=== PATIENT | female | born 1935 | race Caucasian/White ===

== ENCOUNTER 2022-09-21 13:55 | Inpatient (IN) | payer MEDICARE, OTHER, SELFPAY ==
[2022-09-21 14:37] VITALS: BP 135/65; PULSE 76; RESP 18; TEMP 36.7; O2SAT 96
--- NOTE | 2022-09-21 14:49 | P.HPPS_ITS ---
HPI Date of Service: 09/21/22 Chief Complaint: DSM 5 Diagnosis:/ F43.25) Adjustment disorders, wi Sources of Information: patient interviewed, chart reviewed and crisis/core team assessment reviewed HPI Subjective Notes: Gallagher Warning and Conditional Voluntary Healthcare Proxy: Yes Narrative: The patient is an 87-year-old female, , mother of 3 adult children, living by herself in her private home with ancillary services such as home health attendance provided by the family, with a prior history of Alzheimer's dementia referred to the emergency room of [facility] due to increased agitation and delusional behavior. According to the crisis assessment, the patient was been verbally abusive towards her home held attendance and she has called before to the police to remove staff a few days ago. When she was admitted to the emergency room, they found out that she had a UTI and she was treated with antibiotics later on, she received corticoids. She was treated on the emergency room later on in the medical unit of [facility] with Zyprexa. The patient was transferring to this facility for continuation of care. On the communication with the previews doctor, the doctor reported the patient had been medically cleared, there were no imaging the medical problems but it was evident that she had some cognitive impairment. On interview, the patient was unable to provide full details of how come she in the in the hospital, she was pleasant, sarcastic and easily redirectable. She adamantly denies suicidal or homicidal thoughts and she looks confused at times. She denies psychotic symptoms and she is able to contract for safety. She understood gallagher warning and she signed a conditional voluntary. Past Psychiatric History: As per the crisis assessment, the patient has never received psychiatric treatment, she was recently diagnosed of Alzheimer's dementia. Medical Evaluation Reviewed: Hospitalist Deandre Pending [facility] Family History: Denies Social History: The patient was born [place], she immigrated to [place]. She was and recently her a few years ago. She is the mother of 3 adult children that she has good social support. She lives by herself with the help of [employer] is for the last 3 months. Substance History: Denies Trauma History: Denies Diagnostics Vital Signs (24Hr): Vital Signs - 24 hr 09/21/22 14:37 Temperature 98.1 F Pulse Rate 76 Respiratory Rate 18 Blood Pressure 135/65 Pulse Oximetry 96 Oxygen Delivery Method Room Air Meds/Allergies Allergies Allergies Allergy/AdvReac Type Severity Reaction Status Date / Time Unable to Assess Allergy Unverified 09/21/22 14:00 Mental Status Exam Mental Status Exam Patient Appearance: Appropriate (On hospital gowns) Patient Orientation: Person, Place and Situation Level of Consciousness: Awake and Appropriate Patient Behavior: Guarded and Suspicious Mood Description: Calm, Withdrawn and Apprehensive Affect Description: Constricted Patient Cognition Impaired: Yes Ability to Follow Directions: Good Speech Pattern: Clear Hallucinations: None Delusions: Paranoid Ideation Thought Process: Distracted and Linear Thought Content: positive for [place] and positive for Circumstantial Judgement: Fair Assessment & Plan Assessment & Plan (1) Alzheimer's dementia: Status: Acute Code(s): G30.9 - Alzheimer's disease, unspecified; F02.80 - Dementia in other diseases classified elsewhere, unspecified severity, without behavioral disturbance, psychotic disturbance, mood disturbance, and anxiety (2) Delirium: Status: Acute Code(s): R41.0 - Disorientation, unspecified (3) Psychosis: Status: Acute Code(s): F29 - Unspecified psychosis not due to a substance or known physiological condition Plan The patient is an elderly female with a prior history of Alzheimer's dementia who was brought from the community to the emergency room due to increased agitation and paranoia, and the emergency room, she was diagnosed with UTI and ready treated with antibiotics. Even though that there is no other source of delirium, she remains paranoid and irritable at times. She was transferring to this facility for psychiatric stabilization. Plan 1. Gather collateral information. 2. Continue with Zyprexa 5 mg p.o. b.i.d. to target psychosis and agitation. 3. Continue with medical workout. 4. 5 minutes checks in the next 24 hours reassess tomorrow. 5. Regular blood work and reassessment with results. Patient educated on: diagnosis and therapeutic strategies Informed Consent: further education needed Reason for continued inpatient stay Substantial Risk for: inability to function, rapid decompensation and med/psych decompensation Statement Statement: I have reviewed the history and physical and performed a pertinent examination on my patient. No changes have occurred unless specified. If the History and Physical was not performed prior to admission, the Hospitalist's service will be consulted for completing the admission physical. Time Spent With Patient Time: Total time managing care of this patient today __45__ minutes.
--- NOTE | 2022-09-21 18:01 | PC.ADMIT ---
Patient admitted to 181-1 at 1406 via ambulance from [facility] Behavioral Disturbances She was oriented to the floor and her room. Annabelle is oriented to person only but knows that she is in a hospital. She is 87 years old. Vital signs were stable. Her skin is clear. She was continent of bowel and bladder. Annabelle wears eyeglasses blue and brown framed and needs a hearing aide in her left ear but she thinks that she left it at home. She thinks that she is here because she has chronic low back pain. She denies any behavior problems, hitting or spitting at home health aides. She denies having home health aides, stating that she only has housekeeping come in on . She ambulates independently and has a steady gait. Her son Noel Santizo and PCP Doris Morales were notified of her admission. Her son Noel stated that her HCP was invoked and he will send us a copy. She signed her CV and all information releases and also stated that she would also like her son Marcin Santizo to have access to her information. I informed her of her patient rights and gave her the written information. Her appetite was good. She is pleasant and cooperative but was annoyed about not having her sweater and would not complete interview until she was wearing it. She denies SI, HI and perceptual disturbances. She complains of chronic low back pain and OA in her hands, which she very occasionally takes Advil for. Belongings report to follow. Meds verified with Dr Greenwood.
[2022-09-21 20:00] VITALS: BP 121/56; PULSE 87; RESP 18; TEMP 36.3; O2SAT 95
[2022-09-21] MEDS: Acetaminophen 325 MG TABLET 650 MG PO (20:38)
[2022-09-21] MEDS: OLANZapine 5 MG TABLET PO (20:39)
[2022-09-21] MEDS: traZODone HCL 50 MG TABLET PO (22:35)
[2022-09-22 08:32] VITALS: BP 132/62; PULSE 76; RESP 18; TEMP 36; O2SAT 98
[2022-09-22 09:35] LABS: Alanine Aminotransferase 12 U/L (0-31); Albumin Level 3.9 g/dL (3.5-5.0); Alkaline Phosphatase 64 U/L (39-117); Anion Gap 15 (12-20); Aspartate Amino Transferase 16 U/L (5-31); Bilirubin Total 0.4 mg/dL (0.0-1.0); Blood Urea Nitrogen 11 mg/dL (9-16); Calcium 9.2 mg/dL (8.4-10.2); Carbon Dioxide 27 mmol/L (22-29); Chloride 105 mmol/L (96-108); Cholesterol 243 mg/dL; Estimated Glomerular Filt Rate > 60; Glucose Fasting 165 mg/dL (60-99); HDL Cholesterol 54 mg/dL; LDL Cholesterol Calculated 152 mg/dl; Potassium 3.7 mmol/L (3.3-5.1); Sodium 143 mmol/L (135-145); Total Protein 6.7 g/dL (6.5-8.0); Triglycerides 189 mg/dL
[2022-09-22] MEDS: OLANZapine 5 MG TABLET PO ×2 (10:15→20:58)
--- NOTE | 2022-09-22 13:43 | HO.PM.IMCN ---
History of Present Illness Data of Consult Service Date: 09/22/22 Requesting physician: Joel Greenwood Primary Care Provider: Unknown Physician HPI Reason for consult: medical H&P 87-year-old female with history of Alzheimer's dementia, osteoarthritis, and history of DVT not on anticoagulation admitted to Psychiatry consult placed to Hospital Medicine for medical H and P. She has no complaints at this time. Denies any alcohol use, illicit drug use, or smoking.Fasting glucose this am elevated at 165. No known history diabetes. Review of Systems Review of Systems: General: No fevers, malaise, unintentional weight loss HEENT: No blurred vision, diplopia. No sore throat, nasal congestion, rhinorrhea, sinus pain, ear pain Cardiovascular: No chest pain, palpitations, or leg edema Respiratory: No shortness of breath, wheezing, cough GI: No abdominal pain, nausea, vomiting, diarrhea, constipation, melena, hematochezia : No dysuria, hematuria, increased urinary frequency, decreased urinary output MSK: No myalgia, back pain Neuro: No headaches, weakness, paresthesias Skin: No rashes or lesions PMFSH Medical History Alzheimer's dementia History of DVT (deep vein thrombosis) Osteoarthritis Social History Household Members: Caregiver Housing: House Do you presently have visiting nurse or other home services: Yes Patient Tobacco Use Status: Former Tobacco user Quit Date: 1968 Tobacco use type: Cigarette Smoked in Last 30 Days: No Patient Interested in Nicotine Replacement: No Patient Given Instructions on How to Stop Smoking: No Second Hand Smoke Exposure: No Use of substances other than those prescribed or required for medical reasons: No Currently Displaying Signs/Symptoms of Drug Intoxication Withdrawal: No Any prior treatment program specific to substance use: No Have you been hit, kicked, punched, or otherwise hurt by someone within the past year? If so, by whom?: No Do you feel safe in your current relationship?: Yes Is there a partner from a previous relationship who is making you feel unsafe now?: No Are you made to feel afraid or neglected: No Buddhism Healthcare Practices: Hoahaoism Advance Directives: No Advance Directives Information Provided: No Do you have thoughts of harming others: None Do you have a plan to hurt others: No Plan Recently lost weight without trying: Unsure How much weight loss: Unsure Eating poorly because of decreased appetite: No Nutrition screen score: 4 Nutrition Risks: No Nutritional Risk Patient : No : No Poor oral hygiene: No service: No Sexual orientation: Straight/Heterosexual Meds Allergies Allergy/AdvReac Type Severity Reaction Status Date / Time cinnamon AdvReac Unknown Headache Verified 09/21/22 15:00 tuna oil AdvReac Unknown Unknown Verified 09/21/22 15:02 Bello agosto tea AdvReac Headache Uncoded 09/21/22 15:02 Active Medications: Current Medications Acetaminophen (Acetaminophen 325 Mg Tablet) 650 mg PO Q6H PRN PRN Reason: Headache/Pain Mild Scale (1-3) Last Admin: 09/21/22 20:38 Dose: 650 mg Al Hydroxide/Mg Hydroxide (Magnesium Hydrox/Alum Hydrox 30 Ml Oral.Susp) 30 ml PO Q6H PRN PRN Reason: Heartburn/Nausea Lorazepam (Lorazepam 0.5 Mg Tablet) 0.5 mg PO Q8H PRN PRN Reason: Anxiety Magnesium Hydroxide (Milk Of Magnesia 30 Ml Oral.Susp) 30 ml PO DAILY PRN PRN Reason: Constipation Olanzapine (Olanzapine 5 Mg Tablet) 5 mg PO BID WILLIAM Last Admin: 09/22/22 10:15 Dose: 5 mg Olanzapine (Olanzapine Odt 10 Mg Tab.Rapdis) 5 mg TRANSLINGU BID PRN PRN Reason: Psychosis Trazodone HCl (Trazodone Hcl 50 Mg Tablet) 50 mg PO BEDTIME MRX1 PRN PRN Reason: Insomnia Last Admin: 09/21/22 22:35 Dose: 50 mg Physical Exam Vital Signs and Narrative: Vital Signs: Last Vital Signs Temp 96.8 F 09/22/22 08:32 Pulse 76 09/22/22 08:32 Resp 18 09/22/22 08:32 BP 132/62 09/22/22 08:32 Pulse Ox 98 09/22/22 08:32 O2 Del Method Room Air 09/22/22 08:32 Constitutional - Awake and Alert, No apparent distress Eyes - PERRLA, EOMI Cardiovascular - S1S2, RRR, No edema Respiratory - Normal lung expansion, Normal respiratory effort, No respiratory distress, CTA bilaterally Gastrointestinal - NT / ND; +BS; No rebound or guarding Extremities - no calf tenderness bilaterally, no swelling Musculoskeletal - Normal inspection, normal ROM Skin - Warm/Dry Neurological - Alert & oriented x3, CN II-XII in tact, 5/5 strength BUE and BLE Psychological - Appropriate affect Results Labs 09/22/22 09:12 Labs: Laboratory Results - last 24 hr 09/22/22 09:12 Anion Gap 15 Estim Creat Clear Calc TNP Estimated GFR > 60 Fasting Glucose 165 H Calcium 9.2 Total Bilirubin 0.4 AST 16 ALT 12 Alkaline Phosphatase 64 Total Protein 6.7 Albumin 3.9 Triglycerides 189 Cholesterol 243 LDL Cholesterol, Calc 152 HDL Cholesterol 54 Assessment and Plan (1) Routine medical exam: Status: Acute Plan 87-year-old female with history of Alzheimer's dementia, osteoarthritis, and 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 #Azheimer's dementia -plan per psychiatry #Osteoarthritis multiple joints -tylenol prn #History dvt -not on AC -no calf tenderness #Impaired fasting glucose -165, was drawn at 912am, question whether this is fasting -Hgb A1c added on Thank you for allowing me to participate in this consult. Signing off at this time. Please do not hesitate to call for further questions. Time Spent With Patient Time: Total time managing care of this patient today ____ minutes.
--- NOTE | 2022-09-22 16:01 | HO.PSYCHPN ---
Subjective Subjective Date of Service: 09/22/22 Reason For Visit: DSM 5 Diagnosis:/ F43.25) Adjustment disorders, wi Interim History: Pt was seen and discussed with the team. She is active with team in milieu and engaged. She slept~ 5 hours last night has been exit seeking-believes team reports she is to attend a . Described as irritable at times, placing items in the toilet, disrobing. Confusion evident-pt licked her deodarant this a.m. with team however she is settling in on day 2 and more cooperative. 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 Medication Compliance: Yes Attending Groups: Intermittent Review of Systems Acute medical concerns: No Medical Review of Systems: unchanged Mental Status Exam Mental Status Exam Patient Appearance: Appropriate (On hospital gowns) Patient Orientation: Person, Place and Situation Level of Consciousness: Awake and Appropriate Patient Behavior: Guarded and Suspicious Mood Description: Calm, Withdrawn and Apprehensive Affect Description: Constricted Patient Cognition Impaired: Yes Ability to Follow Directions: Good Speech Pattern: Clear Hallucinations: None Delusions: Paranoid Ideation Thought Process: Distracted and Linear Thought Content: positive for [place] and positive for Circumstantial Judgement: Fair Diagnostics Vital Signs (24Hr): Vital Signs - 24 hr 09/21/22 20:00 09/22/22 08:32 Temperature 97.3 F 96.8 F Pulse Rate 87 76 Respiratory Rate 18 18 Blood Pressure 121/56 L 132/62 Pulse Oximetry 95 98 Oxygen Delivery Method Room Air Room Air Labs 09/22/22 09:12 Labs: Laboratory Results - last 48 hr 09/22/22 09:12 Sodium 143 Potassium 3.7 Chloride 105 Carbon Dioxide 27 Anion Gap 15 BUN 11 Creatinine 0.76 Estim Creat Clear Calc TNP Estimated GFR > 60 Fasting Glucose 165 H Calcium 9.2 Total Bilirubin 0.4 AST 16 ALT 12 Alkaline Phosphatase 64 Total Protein 6.7 Albumin 3.9 Triglycerides 189 Cholesterol 243 LDL Cholesterol, Calc 152 HDL Cholesterol 54 Medications Medications Current Medications Acetaminophen (Acetaminophen 325 Mg Tablet) 650 mg PO Q6H PRN PRN Reason: Headache/Pain Mild Scale (1-3) Last Admin: 09/21/22 20:38 Dose: 650 mg Al Hydroxide/Mg Hydroxide (Magnesium Hydrox/Alum Hydrox 30 Ml Oral.Susp) 30 ml PO Q6H PRN PRN Reason: Heartburn/Nausea Lorazepam (Lorazepam 0.5 Mg Tablet) 0.5 mg PO Q8H PRN PRN Reason: Anxiety Magnesium Hydroxide (Milk Of Magnesia 30 Ml Oral.Susp) 30 ml PO DAILY PRN PRN Reason: Constipation Olanzapine (Olanzapine 5 Mg Tablet) 5 mg PO BID WILLIAM Last Admin: 09/22/22 10:15 Dose: 5 mg Olanzapine (Olanzapine Odt 10 Mg Tab.Rapdis) 5 mg TRANSLINGU BID PRN PRN Reason: Psychosis Trazodone HCl (Trazodone Hcl 50 Mg Tablet) 50 mg PO BEDTIME MRX1 PRN PRN Reason: Insomnia Last Admin: 09/21/22 22:35 Dose: 50 mg Allergies Allergies Allergy/AdvReac Type Severity Reaction Status Date / Time cinnamon AdvReac Unknown Headache Verified 09/21/22 15:00 tuna oil AdvReac Unknown Unknown Verified 09/21/22 15:02 Bello agosto tea AdvReac Headache Uncoded 09/21/22 15:02 Assessment & Plan Assessment & Plan (1) Alzheimer's dementia: Status: Acute Code(s): G30.9 - Alzheimer's disease, unspecified; F02.80 - Dementia in other diseases classified elsewhere, unspecified severity, without behavioral disturbance, psychotic disturbance, mood disturbance, and anxiety (2) Psychosis: Status: Acute Code(s): F29 - Unspecified psychosis not due to a substance or known physiological condition Plan 87-year-old female with history of Alzheimer's dementia, osteoarthritis, and 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 #Azheimer's dementia -plan per psychiatry #Osteoarthritis multiple joints -tylenol prn #History dvt -not on AC -no calf tenderness #Impaired fasting glucose -165, was drawn at 912am, question whether this is fasting -Hgb A1c added on Thank you for allowing me to participate in this consult. Signing off at this time. Please do not hesitate to call for further questions. 09/22/22: Continue current regime and plan of care. Reason for continued inpatient stay Substantial Risk for: rapid decompensation Time Spent With Patient Time: Total time managing care of this patient today ____ minutes.
[2022-09-22 18:00] VITALS: BP 149/72; PULSE 83; RESP 18; TEMP 36.3; O2SAT 97
[2022-09-22] MEDS: LORazepam 0.5 MG TABLET PO (20:58)
[2022-09-22] MEDS: traZODone HCL 50 MG TABLET PO (20:58)
[2022-09-22] MEDS: Acetaminophen 325 MG TABLET 650 MG PO (20:58)
--- NOTE | 2022-09-23 09:03 | HO.PSYCHPN ---
Subjective Subjective Date of Service: 09/23/22 Reason For Visit: DSM 5 Diagnosis:/ F43.25) Adjustment disorders, wi Interim History: Pt seen, met with team who report increases in intrusive sx, disorganization, irritability, paranoia with aggression (biting, scratching). Refusing meds at times. Later in the day, team requesting one to one which was implemented. Mental Status Exam Mental Status Exam Patient Appearance: Appropriate (On hospital gowns) Patient Orientation: Person, Place and Situation Level of Consciousness: Awake and Appropriate Patient Behavior: Guarded and Suspicious Mood Description: Calm, Withdrawn and Apprehensive Affect Description: Constricted Patient Cognition Impaired: Yes Ability to Follow Directions: Good Speech Pattern: Clear and Spontaneous Speech Memory Description: Remote Impaired Hallucinations: None Delusions: Paranoid Ideation Thought Process: Distracted and Linear Thought Content: positive for [place] and positive for Circumstantial Depressive Symptoms: Increased Irritability Abnormal Motor Activity Signs and Symptoms: Aggression and Agitation Judgement: Fair Diagnostics Vital Signs (24Hr): Vital Signs - 24 hr 09/22/22 18:00 Temperature 97.4 F Pulse Rate 83 Respiratory Rate 18 Blood Pressure 149/72 H Pulse Oximetry 97 Oxygen Delivery Method Room Air Labs 09/22/22 09:12 Labs: Laboratory Results - last 48 hr 09/22/22 09:12 Sodium 143 Potassium 3.7 Chloride 105 Carbon Dioxide 27 Anion Gap 15 BUN 11 Creatinine 0.76 Estim Creat Clear Calc TNP Estimated GFR > 60 Fasting Glucose 165 H Calcium 9.2 Total Bilirubin 0.4 AST 16 ALT 12 Alkaline Phosphatase 64 Total Protein 6.7 Albumin 3.9 Triglycerides 189 Cholesterol 243 LDL Cholesterol, Calc 152 HDL Cholesterol 54 Medications Medications Current Medications Acetaminophen (Acetaminophen 325 Mg Tablet) 650 mg PO Q6H PRN PRN Reason: Headache/Pain Mild Scale (1-3) Last Admin: 09/22/22 20:58 Dose: 650 mg Al Hydroxide/Mg Hydroxide (Magnesium Hydrox/Alum Hydrox 30 Ml Oral.Susp) 30 ml PO Q6H PRN PRN Reason: Heartburn/Nausea Lorazepam (Lorazepam 0.5 Mg Tablet) 0.5 mg PO Q8H PRN PRN Reason: Anxiety Last Admin: 09/22/22 20:58 Dose: 0.5 mg Magnesium Hydroxide (Milk Of Magnesia 30 Ml Oral.Susp) 30 ml PO DAILY PRN PRN Reason: Constipation Olanzapine (Olanzapine 5 Mg Tablet) 5 mg PO BID WILLIAM Last Admin: 09/22/22 20:58 Dose: 5 mg Olanzapine (Olanzapine Odt 10 Mg Tab.Rapdis) 5 mg TRANSLINGU BID PRN PRN Reason: Psychosis Trazodone HCl (Trazodone Hcl 50 Mg Tablet) 50 mg PO BEDTIME MRX1 PRN PRN Reason: Insomnia Last Admin: 09/22/22 20:58 Dose: 50 mg Allergies Allergies Allergy/AdvReac Type Severity Reaction Status Date / Time cinnamon AdvReac Unknown Headache Verified 09/21/22 15:00 tuna oil AdvReac Unknown Unknown Verified 09/21/22 15:02 Bello agosto tea AdvReac Headache Uncoded 09/21/22 15:02 Assessment & Plan Assessment & Plan (1) Alzheimer's dementia: Status: Acute Code(s): G30.9 - Alzheimer's disease, unspecified; F02.80 - Dementia in other diseases classified elsewhere, unspecified severity, without behavioral disturbance, psychotic disturbance, mood disturbance, and anxiety (2) Psychosis: Status: Acute Code(s): F29 - Unspecified psychosis not due to a substance or known physiological condition Plan 87-year-old female with history of Alzheimer's dementia, osteoarthritis, and 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 #Azheimer's dementia -plan per psychiatry #Osteoarthritis multiple joints -tylenol prn #History dvt -not on AC -no calf tenderness #Impaired fasting glucose -165, was drawn at 912am, question whether this is fasting -Hgb A1c added on Thank you for allowing me to participate in this consult. Signing off at this time. Please do not hesitate to call for further questions. 09/22/22: Continue current regime and plan of care. 09/23/22: Continue current regime and plan of care. Informed Consent: does not understand Reason for continued inpatient stay Substantial Risk for: rapid decompensation Time Spent With Patient Time: Total time managing care of this patient today ____ minutes.
[2022-09-23 10:11] VITALS: RESP 18
--- NOTE | 2022-09-23 10:48 | PC.NURSE ---
Annabelle declined to allow VS and take Zyprexa despite education. Kellie Burden NP notified.
--- NOTE | 2022-09-23 16:27 | PC.NURSE ---
Addendum entered by Rossy Polk RN 09/23/22 17:17: Annabelle is very intrusive and frequently entering other patient's rooms and is confused and challenging to redirect. She has been observed to enter several rooms and going through other patient's belongings and taking items. She becomes agitated with redirection and has been throwing items at staff. Kellie Burden NP notified and 1:1 continuous observation order placed for intrusiveness/safety. Original Note: Annabelle is very intrusive as she is frequently going into other peer's rooms
[2022-09-23] MEDS: OLANZapine ODT 10 MG TAB.RAPDIS 5 MG TRANSLINGU (16:36)
[2022-09-23] MEDS: LORazepam 0.5 MG TABLET PO (16:36)
[2022-09-23 18:00] VITALS: BP 115/55; PULSE 82; RESP 18; TEMP 36.9; O2SAT 97
[2022-09-23] MEDS: OLANZapine 5 MG TABLET PO (20:40)
[2022-09-23] MEDS: traZODone HCL 50 MG TABLET PO ×2 (20:40→22:54)
[2022-09-23] MEDS: Acetaminophen 325 MG TABLET 650 MG PO (22:54)
[2022-09-24] MEDS: LORazepam 0.5 MG TABLET PO ×2 (00:30→18:41)
[2022-09-24] MEDS: OLANZapine 5 MG TABLET PO ×2 (10:34→20:27)
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
--- NOTE | 2022-09-24 13:34 | MHC.CLN ---
NUTRITION PATIENT APPEARS THIN/UNDERWEIGHT. GOOD APPETITE REPORTED. ATE ABOUT 50% THIS LUNCH. MONITOR FOR WEIGHT/HEIGHT AND INTAKE.
[2022-09-24 18:00] VITALS: BP 110/58; PULSE 92; RESP 18; TEMP 36.6; O2SAT 96
[2022-09-24] MEDS: traZODone HCL 50 MG TABLET PO (20:27)
[2022-09-24] MEDS: Acetaminophen 325 MG TABLET 650 MG PO (20:28)
[2022-09-25] MEDS: OLANZapine 5 MG TABLET PO ×2 (08:40→22:18)
[2022-09-25 09:02] VITALS: BP 111/53; PULSE 72; RESP 18; TEMP 36.6; O2SAT 97
--- NOTE | 2022-09-25 14:38 | HO.PSYCHPN ---
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 She continues on one to one as she is intrusive, entering other pt's room. She asks this greeting card writer to help her buy ticket to go home. She reports family waiting for her. She reports roommate is someone who works for me, don't worry about them. Pt well groomed. BP stable on lower end 111/53, Hr 72. Medication Compliance: Yes Review of Systems Review of Systems General: No fevers, malaise, unintentional weight loss HEENT: No blurred vision, diplopia. No sore throat, nasal congestion, rhinorrhea, sinus pain, ear pain Cardiovascular: No chest pain, palpitations, or leg edema Respiratory: No shortness of breath, wheezing, cough GI: No abdominal pain, nausea, vomiting, diarrhea, constipation, melena, hematochezia : No dysuria, hematuria, increased urinary frequency, decreased urinary output MSK: No myalgia, back pain Neuro: No headaches, weakness, paresthesias Skin: No rashes or lesions Yes all other systems are reviewed and are negative Mental Status Exam Mental Status Exam Patient Appearance: Appropriate Patient Orientation: Person and Situation Level of Consciousness: Awake and Appropriate Patient Behavior: Guarded and Passive Mood Description: Withdrawn Affect Description: Constricted and Labile Patient Cognition Impaired: Yes Ability to Follow Directions: Good Speech Pattern: Clear Memory Description: Remote Impaired Diagnostics Vital Signs (24Hr): Vital Signs - 24 hr 09/24/22 18:00 09/25/22 09:02 Temperature 97.9 F 97.9 F Pulse Rate 92 72 Respiratory Rate 18 18 Blood Pressure 110/58 L 111/53 L Pulse Oximetry 96 97 Oxygen Delivery Method Room Air Room Air Labs 09/22/22 09:12 Medications Medications Current Medications Acetaminophen (Acetaminophen 325 Mg Tablet) 650 mg PO Q6H PRN PRN Reason: Headache/Pain Mild Scale (1-3) Last Admin: 09/24/22 20:28 Dose: 650 mg Al Hydroxide/Mg Hydroxide (Magnesium Hydrox/Alum Hydrox 30 Ml Oral.Susp) 30 ml PO Q6H PRN PRN Reason: Heartburn/Nausea Donepezil HCl (Donepezil Hcl 5 Mg Tablet) 5 mg PO BEDTIME WILLIAM Last Admin: 09/24/22 20:28 Dose: 5 mg Lorazepam (Lorazepam 0.5 Mg Tablet) 0.5 mg PO Q8H PRN PRN Reason: Anxiety Last Admin: 09/24/22 18:41 Dose: 0.5 mg Magnesium Hydroxide (Milk Of Magnesia 30 Ml Oral.Susp) 30 ml PO DAILY PRN PRN Reason: Constipation Olanzapine (Olanzapine 5 Mg Tablet) 5 mg PO BID WILLIAM Last Admin: 09/25/22 08:40 Dose: 5 mg Olanzapine (Olanzapine Odt 10 Mg Tab.Rapdis) 5 mg TRANSLINGU BID PRN PRN Reason: Psychosis Last Admin: 09/23/22 16:36 Dose: 5 mg Trazodone HCl (Trazodone Hcl 50 Mg Tablet) 50 mg PO BEDTIME MRX1 PRN PRN Reason: Insomnia Last Admin: 09/24/22 20:27 Dose: 50 mg Allergies Allergies Allergy/AdvReac Type Severity Reaction Status Date / Time cinnamon AdvReac Unknown Headache Verified 09/21/22 15:00 tuna oil AdvReac Unknown Unknown Verified 09/21/22 15:02 Bello agosto tea AdvReac Headache Uncoded 09/21/22 15:02 Assessment & Plan Assessment & Plan (1) Alzheimer's dementia: Status: Acute Code(s): G30.9 - Alzheimer's disease, unspecified; F02.80 - Dementia in other diseases classified elsewhere, unspecified severity, without behavioral disturbance, psychotic disturbance, mood disturbance, and anxiety (2) Psychosis: Status: Acute Code(s): F29 - Unspecified psychosis not due to a substance or known physiological condition Plan 87-year-old female with history of Alzheimer's dementia, osteoarthritis, and 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 #Azheimer's dementia -plan per psychiatry #Osteoarthritis multiple joints -tylenol prn #History dvt -not on AC -no calf tenderness #Impaired fasting glucose -165, was drawn at 912am, question whether this is fasting -Hgb A1c added on Thank you for allowing me to participate in this consult. Signing off at this time. Please do not hesitate to call for further questions. Plan 1. Gather collateral information. 2. Continue Zyprexa 5 mg p.o. b.i.d.. 3. We will retry medical workout since she looks slightly more confused than last Saturday. 09/25 continue tx. Reason for continued inpatient stay Substantial Risk for: inability to function Time Spent With Patient Time: Total time managing care of this patient today ____ minutes.
[2022-09-25 18:00] VITALS: BP 147/69; PULSE 85; RESP 18; TEMP 36.3; O2SAT 97
[2022-09-25] MEDS: traZODone HCL 50 MG TABLET PO (22:18)
[2022-09-25] MEDS: LORazepam 0.5 MG TABLET PO (22:18)
--- NOTE | 2022-09-26 00:56 | PC.NURSE ---
Addendum entered by Braden Dey RN 09/26/22 03:25: Patient woke at 0230 with agitation, taking off clothes in the bathroom and washing hair with carton of milk. Patient not listening to any reason or accepting any help/intervention. Patient did dress herself although attempting to put on sweat pants over bing pants inside out and had both of her legs in one leg hole. She will not accept any medications or drinks. She is currently in lounge seated at one of the tables. Original Note: Patient is alert, calm, cooperative tonight. Independent in ADL's although very confused. Remembers events through confusion such as RN giving her tea at the table but also looking for her brother who she states was here and money for a taxi to get home. Patient ambulating halls at 2300, back to bed at midnight. Medication compliant. Will continue to monitor.
[2022-09-26] MEDS: OLANZapine ODT 10 MG TAB.RAPDIS 5 MG TRANSLINGU ×2 (04:46→21:14)
[2022-09-26] MEDS: LORazepam 0.5 MG TABLET PO ×3 (05:00→23:38)
[2022-09-26 08:00] VITALS: BP 128/59; PULSE 69; RESP 18; TEMP 36.6; O2SAT 94
--- NOTE | 2022-09-26 11:11 | HO.PSYCHPN ---
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 She is alert and oriented only to herself. Yesterday she receive p.r.n. Zyprexa for confusion. The social service agency director contact the family and they were thinking of probably discharging to assisted living facility due to her advanced dementia. On interview the patient denies new symptoms, she is pleasantly confused over increase in Aricept to 10 mg p.o. q.h.s. to target dementia. Mental Status Exam Mental Status Exam Patient Appearance: Well Grooomed and Appropriate Patient Orientation: Person and Situation Level of Consciousness: Awake and Appropriate Patient Behavior: Guarded and Passive Mood Description: Calm Affect Description: Apathetic and Constricted Patient Cognition Impaired: Yes Ability to Follow Directions: Good Speech Pattern: Clear Hallucinations: None Delusions: Not Present Thought Process: Distracted and Slowed Thinking Thought Content: positive for [place] and positive for Circumstantial Judgement: Fair Diagnostics Vital Signs (24Hr): Vital Signs - 24 hr 09/25/22 18:00 09/26/22 08:00 Temperature 97.3 F 97.9 F Pulse Rate 85 69 Respiratory Rate 18 18 Blood Pressure 147/69 H 128/59 L Pulse Oximetry 97 94 Oxygen Delivery Method Room Air Room Air Labs 09/22/22 09:12 Medications Medications Current Medications Acetaminophen (Acetaminophen 325 Mg Tablet) 650 mg PO Q6H PRN PRN Reason: Headache/Pain Mild Scale (1-3) Last Admin: 09/24/22 20:28 Dose: 650 mg Al Hydroxide/Mg Hydroxide (Magnesium Hydrox/Alum Hydrox 30 Ml Oral.Susp) 30 ml PO Q6H PRN PRN Reason: Heartburn/Nausea Donepezil HCl (Donepezil Hcl 10 Mg Tablet) 10 mg PO BEDTIME WILLIAM Lorazepam (Lorazepam 0.5 Mg Tablet) 0.5 mg PO Q8H PRN PRN Reason: Anxiety Last Admin: 09/26/22 05:00 Dose: 0.5 mg Magnesium Hydroxide (Milk Of Magnesia 30 Ml Oral.Susp) 30 ml PO DAILY PRN PRN Reason: Constipation Olanzapine (Olanzapine 5 Mg Tablet) 5 mg PO BID WILLIAM Last Admin: 09/25/22 22:18 Dose: 5 mg Olanzapine (Olanzapine Odt 10 Mg Tab.Rapdis) 5 mg TRANSLINGU BID PRN PRN Reason: Psychosis Last Admin: 09/26/22 04:46 Dose: 5 mg Trazodone HCl (Trazodone Hcl 50 Mg Tablet) 50 mg PO BEDTIME MRX1 PRN PRN Reason: Insomnia Last Admin: 09/25/22 22:18 Dose: 50 mg Allergies Allergies Allergy/AdvReac Type Severity Reaction Status Date / Time cinnamon AdvReac Unknown Headache Verified 09/21/22 15:00 tuna oil AdvReac Unknown Unknown Verified 09/21/22 15:02 Bello agosto tea AdvReac Headache Uncoded 09/21/22 15:02 Assessment & Plan Assessment & Plan (1) Alzheimer's dementia: Status: Acute Code(s): G30.9 - Alzheimer's disease, unspecified; F02.80 - Dementia in other diseases classified elsewhere, unspecified severity, without behavioral disturbance, psychotic disturbance, mood disturbance, and anxiety (2) Psychosis: Status: Acute Code(s): F29 - Unspecified psychosis not due to a substance or known physiological condition Plan 87-year-old female with history of Alzheimer's dementia, osteoarthritis, and 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 #Azheimer's dementia -plan per psychiatry #Osteoarthritis multiple joints -tylenol prn #History dvt -not on AC -no calf tenderness #Impaired fasting glucose -165, was drawn at 912am, question whether this is fasting -Hgb A1c added on Thank you for allowing me to participate in this consult. Signing off at this time. Please do not hesitate to call for further questions. Plan 1. Gather collateral information. 2. Continue Zyprexa 5 mg p.o. b.i.d.. 3. We will retry medical workout since she looks slightly more confused than last Saturday. Reason for continued inpatient stay Substantial Risk for: inability to function, rapid decompensation and med/psych decompensation Time Spent With Patient Time: Total time managing care of this patient today __20__ minutes.
[2022-09-26] MEDS: OLANZapine 5 MG TABLET PO ×2 (11:37→20:06)
[2022-09-26 18:00] VITALS: BP 111/56; PULSE 87; RESP 16; TEMP 36.9; O2SAT 95
[2022-09-26] MEDS: Donepezil HCl 10 MG TABLET PO (20:06)
[2022-09-26] MEDS: traZODone HCL 50 MG TABLET PO ×2 (20:06→21:13)
[2022-09-26] MEDS: Acetaminophen 325 MG TABLET 650 MG PO (21:13)
[2022-09-27 08:28] VITALS: BP 141/81; PULSE 75; RESP 18; TEMP 35.9; O2SAT 96
[2022-09-27] MEDS: OLANZapine 5 MG TABLET PO ×2 (09:07→20:57)
--- NOTE | 2022-09-27 10:00 | HO.PSYCHPN ---
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 She slept 6 hours. Last night she needed trazodone and Zyprexa Zydis p.r.n.. The foster care social worker contact her son and probably did workout on placement. On interview the patient rim [place] pleasantly confused with some word-finding. We will start Namenda judson. Mental Status Exam Mental Status Exam Patient Appearance: Well Grooomed and Appropriate Patient Orientation: Person and Situation Level of Consciousness: Awake and Appropriate Patient Behavior: Guarded and Passive Mood Description: Withdrawn Affect Description: Constricted Patient Cognition Impaired: Yes Ability to Follow Directions: Good Speech Pattern: Clear and Difficulty Finding Words Hallucinations: None Delusions: Not Present Thought Process: Distracted and Linear Thought Content: positive for [place], positive for Poverty of Content and positive for Thought Blocking Judgement: Poor Diagnostics Vital Signs (24Hr): Vital Signs - 24 hr 09/26/22 18:00 09/27/22 08:28 Temperature 98.4 F 96.7 F L Pulse Rate 87 75 Respiratory Rate 16 18 Blood Pressure 111/56 L 141/81 H Pulse Oximetry 95 96 Oxygen Delivery Method Room Air Room Air Labs 09/22/22 09:12 Medications Medications Current Medications Acetaminophen (Acetaminophen 325 Mg Tablet) 650 mg PO Q6H PRN PRN Reason: Headache/Pain Mild Scale (1-3) Last Admin: 09/26/22 21:13 Dose: 650 mg Al Hydroxide/Mg Hydroxide (Magnesium Hydrox/Alum Hydrox 30 Ml Oral.Susp) 30 ml PO Q6H PRN PRN Reason: Heartburn/Nausea Donepezil HCl (Donepezil Hcl 10 Mg Tablet) 10 mg PO BEDTIME WILLIAM Last Admin: 09/26/22 20:06 Dose: 10 mg Lorazepam (Lorazepam 0.5 Mg Tablet) 0.5 mg PO Q8H PRN PRN Reason: Anxiety Last Admin: 09/26/22 23:38 Dose: 0.5 mg Magnesium Hydroxide (Milk Of Magnesia 30 Ml Oral.Susp) 30 ml PO DAILY PRN PRN Reason: Constipation Memantine (Memantine Hcl 5 Mg Tablet) 5 mg PO BEDTIME WILLIAM Olanzapine (Olanzapine 5 Mg Tablet) 5 mg PO BID WILLIAM Last Admin: 09/27/22 09:07 Dose: 5 mg Olanzapine (Olanzapine Odt 10 Mg Tab.Rapdis) 5 mg TRANSLINGU BID PRN PRN Reason: Psychosis Last Admin: 09/26/22 21:14 Dose: 5 mg Trazodone HCl (Trazodone Hcl 50 Mg Tablet) 50 mg PO BEDTIME MRX1 PRN PRN Reason: Insomnia Last Admin: 09/26/22 21:13 Dose: 50 mg Allergies Allergies Allergy/AdvReac Type Severity Reaction Status Date / Time cinnamon AdvReac Unknown Headache Verified 09/21/22 15:00 tuna oil AdvReac Unknown Unknown Verified 09/21/22 15:02 Bello agosto tea AdvReac Headache Uncoded 09/21/22 15:02 Assessment & Plan Assessment & Plan (1) Alzheimer's dementia: Status: Acute Code(s): G30.9 - Alzheimer's disease, unspecified; F02.80 - Dementia in other diseases classified elsewhere, unspecified severity, without behavioral disturbance, psychotic disturbance, mood disturbance, and anxiety (2) Psychosis: Status: Acute Code(s): F29 - Unspecified psychosis not due to a substance or known physiological condition Plan 87-year-old female with history of Alzheimer's dementia, osteoarthritis, and 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 #Azheimer's dementia -plan per psychiatry #Osteoarthritis multiple joints -tylenol prn #History dvt -not on AC -no calf tenderness #Impaired fasting glucose -165, was drawn at 912am, question whether this is fasting -Hgb A1c added on Thank you for allowing me to participate in this consult. Signing off at this time. Please do not hesitate to call for further questions. Plan 1. Gather collateral information. 2. Continue Zyprexa 5 mg p.o. b.i.d.. 3. Start Namenda 5 mg p.o. q.h.s.. Reason for continued inpatient stay Substantial Risk for: inability to function, rapid decompensation and med/psych decompensation Time Spent With Patient Time: Total time managing care of this patient today __20__ minutes.
[2022-09-27 13:20] VITALS: BMI 21.1
[2022-09-27] MEDS: OLANZapine ODT 10 MG TAB.RAPDIS 5 MG TRANSLINGU (13:45)
[2022-09-27] MEDS: LORazepam 0.5 MG TABLET PO (13:45)
[2022-09-27 18:00] VITALS: BP 120/63; PULSE 93; RESP 18; TEMP 37.2; O2SAT 95
[2022-09-27] MEDS: Acetaminophen 325 MG TABLET 650 MG PO (20:57)
[2022-09-27] MEDS: Donepezil HCl 10 MG TABLET PO (20:57)
[2022-09-27] MEDS: traZODone HCL 50 MG TABLET PO (20:57)
[2022-09-28 09:47] VITALS: BP 151/77; PULSE 74; RESP 18; TEMP 36.6; O2SAT 96
[2022-09-28] MEDS: OLANZapine 5 MG TABLET PO ×2 (10:34→20:23)
--- NOTE | 2022-09-28 14:50 | HO.PSYCHPN ---
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 She has been pleasant and her behavior improved later in the evening. On interview the patient denies new symptoms she looks pleasantly confused at times. She stated that she wanted to take the bus but she was unaware that she was in the hospital. We are going to keep Namenda the up to 5 mg in the evening over the weekend and then we will increase it next week. Mental Status Exam Mental Status Exam Patient Appearance: Well Grooomed and Appropriate Patient Orientation: Person and Situation Level of Consciousness: Awake Patient Behavior: Guarded and Passive Mood Description: Withdrawn Affect Description: Constricted Patient Cognition Impaired: Yes Ability to Follow Directions: Good Speech Pattern: Clear Hallucinations: None Delusions: Not Present Thought Process: Distracted and Evasive Thought Content: positive for [place] and positive for Poverty of Content Judgement: Fair Diagnostics Vital Signs (24Hr): Vital Signs - 24 hr 09/27/22 18:00 09/28/22 09:47 Temperature 98.9 F 97.8 F Pulse Rate 93 74 Respiratory Rate 18 18 Blood Pressure 120/63 151/77 H Pulse Oximetry 95 96 Oxygen Delivery Method Room Air Room Air BMI result Body Mass Index 21.1 Labs 09/22/22 09:12 Medications Medications Current Medications Acetaminophen (Acetaminophen 325 Mg Tablet) 650 mg PO Q6H PRN PRN Reason: Headache/Pain Mild Scale (1-3) Last Admin: 09/27/22 20:57 Dose: 650 mg Al Hydroxide/Mg Hydroxide (Magnesium Hydrox/Alum Hydrox 30 Ml Oral.Susp) 30 ml PO Q6H PRN PRN Reason: Heartburn/Nausea Donepezil HCl (Donepezil Hcl 10 Mg Tablet) 10 mg PO BEDTIME WILLIAM Last Admin: 09/27/22 20:57 Dose: 10 mg Lorazepam (Lorazepam 0.5 Mg Tablet) 0.5 mg PO Q8H PRN PRN Reason: Anxiety Last Admin: 09/27/22 13:45 Dose: 0.5 mg Magnesium Hydroxide (Milk Of Magnesia 30 Ml Oral.Susp) 30 ml PO DAILY PRN PRN Reason: Constipation Memantine (Memantine Hcl 5 Mg Tablet) 5 mg PO BEDTIME WILLIAM Last Admin: 09/27/22 20:57 Dose: 5 mg Olanzapine (Olanzapine 5 Mg Tablet) 5 mg PO BID WILLIAM Last Admin: 09/28/22 10:34 Dose: 5 mg Olanzapine (Olanzapine Odt 10 Mg Tab.Rapdis) 5 mg TRANSLINGU BID PRN PRN Reason: Psychosis Last Admin: 09/27/22 13:45 Dose: 5 mg Trazodone HCl (Trazodone Hcl 50 Mg Tablet) 50 mg PO BEDTIME MRX1 PRN PRN Reason: Insomnia Last Admin: 09/27/22 20:57 Dose: 50 mg Allergies Allergies Allergy/AdvReac Type Severity Reaction Status Date / Time cinnamon AdvReac Unknown Headache Verified 09/21/22 15:00 tuna oil AdvReac Unknown Unknown Verified 09/21/22 15:02 Bello agosto tea AdvReac Headache Uncoded 09/21/22 15:02 Assessment & Plan Assessment & Plan (1) Alzheimer's dementia: Status: Acute Code(s): G30.9 - Alzheimer's disease, unspecified; F02.80 - Dementia in other diseases classified elsewhere, unspecified severity, without behavioral disturbance, psychotic disturbance, mood disturbance, and anxiety (2) Psychosis: Status: Acute Code(s): F29 - Unspecified psychosis not due to a substance or known physiological condition Plan 87-year-old female with history of Alzheimer's dementia, osteoarthritis, and 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 #Azheimer's dementia -plan per psychiatry #Osteoarthritis multiple joints -tylenol prn #History dvt -not on AC -no calf tenderness #Impaired fasting glucose -165, was drawn at 912am, question whether this is fasting -Hgb A1c added on Thank you for allowing me to participate in this consult. Signing off at this time. Please do not hesitate to call for further questions. Plan 1. Gather collateral information. 2. Continue Zyprexa 5 mg p.o. b.i.d.. 3. Start Namenda 5 mg p.o. q.h.s.. Reason for continued inpatient stay Substantial Risk for: inability to function, rapid decompensation and med/psych decompensation Time Spent With Patient Time: Total time managing care of this patient today __20__ minutes.
[2022-09-28 18:00] VITALS: BP 156/72; PULSE 90; RESP 18; TEMP 36.5; O2SAT 93
[2022-09-28] MEDS: Donepezil HCl 10 MG TABLET PO (20:23)
[2022-09-28] MEDS: LORazepam 0.5 MG TABLET PO (21:39)
[2022-09-28] MEDS: traZODone HCL 50 MG TABLET PO (21:40)
[2022-09-28] MEDS: Acetaminophen 325 MG TABLET 650 MG PO (21:44)
[2022-09-28] MEDS: OLANZapine ODT 10 MG TAB.RAPDIS 5 MG TRANSLINGU (22:30)
[2022-09-29] MEDS: OLANZapine 5 MG TABLET PO ×2 (08:49→19:58)
[2022-09-29 09:18] VITALS: BP 144/83; PULSE 88; RESP 18; TEMP 36.5; O2SAT 96
--- NOTE | 2022-09-29 10:40 | HO.PSYCHPN ---
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 multiple large novels opened on the table in front of her. no questions concerns or requests. per staff, took zyprexa today. paces. got ativan, trazodone, zydis to sleep last night. slept about 6 hours. Mental Status Exam Mental Status Exam Patient Appearance: Well Grooomed and Appropriate Patient Orientation: Person and Situation Level of Consciousness: Awake Patient Behavior: Guarded and Passive Mood Description: Withdrawn Affect Description: Constricted Patient Cognition Impaired: Yes Ability to Follow Directions: Good Speech Pattern: Clear Hallucinations: None Delusions: Not Present Thought Process: Distracted and Evasive Thought Content: positive for [place] and positive for Poverty of Content Judgement: Fair Diagnostics Vital Signs (24Hr): Vital Signs - 24 hr 09/28/22 18:00 09/29/22 09:18 Temperature 97.7 F 97.7 F Pulse Rate 90 88 Respiratory Rate 18 18 Blood Pressure 156/72 H 144/83 H Pulse Oximetry 93 96 Oxygen Delivery Method Room Air Room Air BMI result Body Mass Index 21.1 Labs 09/22/22 09:12 Medications Medications Current Medications Acetaminophen (Acetaminophen 325 Mg Tablet) 650 mg PO Q6H PRN PRN Reason: Headache/Pain Mild Scale (1-3) Last Admin: 09/28/22 21:44 Dose: 650 mg Al Hydroxide/Mg Hydroxide (Magnesium Hydrox/Alum Hydrox 30 Ml Oral.Susp) 30 ml PO Q6H PRN PRN Reason: Heartburn/Nausea Donepezil HCl (Donepezil Hcl 10 Mg Tablet) 10 mg PO BEDTIME [facility] Last Admin: 09/28/22 20:23 Dose: 10 mg Lorazepam (Lorazepam 0.5 Mg Tablet) 0.5 mg PO Q8H PRN PRN Reason: Anxiety Last Admin: 09/28/22 21:39 Dose: 0.5 mg Magnesium Hydroxide (Milk Of Magnesia 30 Ml Oral.Susp) 30 ml PO DAILY PRN PRN Reason: Constipation Memantine (Memantine Hcl 5 Mg Tablet) 5 mg PO BEDTIME [facility] Last Admin: 09/28/22 20:23 Dose: 5 mg Olanzapine (Olanzapine 5 Mg Tablet) 5 mg PO BID [facility] Last Admin: 07/08/23 08:49 Dose: 5 mg Olanzapine (Olanzapine Odt 10 Mg Tab.Rapdis) 5 mg TRANSLINGU BID PRN PRN Reason: Psychosis Last Admin: 09/28/22 22:30 Dose: 5 mg Trazodone HCl (Trazodone Hcl 50 Mg Tablet) 50 mg PO BEDTIME MRX1 PRN PRN Reason: Insomnia Last Admin: 09/28/22 21:40 Dose: 50 mg Allergies Allergies Allergy/AdvReac Type Severity Reaction Status Date / Time cinnamon AdvReac Unknown Headache Verified 09/21/22 15:00 tuna oil AdvReac Unknown Unknown Verified 09/21/22 15:02 Bello agosto tea AdvReac Headache Uncoded 09/21/22 15:02 Assessment & Plan Assessment & Plan (1) Alzheimer's dementia: Status: Acute Code(s): G30.9 - Alzheimer's disease, unspecified; F02.80 - Dementia in other diseases classified elsewhere, unspecified severity, without behavioral disturbance, psychotic disturbance, mood disturbance, and anxiety (2) Psychosis: Status: Acute Code(s): F29 - Unspecified psychosis not due to a substance or known physiological condition Plan 87-year-old female with history of Alzheimer's dementia, osteoarthritis, and 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 #Azheimer's dementia -plan per psychiatry #Osteoarthritis multiple joints -tylenol prn #History dvt -not on AC -no calf tenderness #Impaired fasting glucose -165, was drawn at 912am, question whether this is fasting -Hgb A1c added on Thank you for allowing me to participate in this consult. Signing off at this time. Please do not hesitate to call for further questions. Plan 1. Gather collateral information. 2. Continue Zyprexa 5 mg p.o. b.i.d.. 3. Start Namenda 5 mg p.o. q.h.s.. 09/29: continue current mgmt. stable presentation. Reason for continued inpatient stay Substantial Risk for: inability to function and rapid decompensation Time Spent With Patient Time: Total time managing care of this patient today ____ minutes.
[2022-09-29] MEDS: LORazepam 0.5 MG TABLET PO (14:00)
[2022-09-29 18:00] VITALS: BP 138/79; PULSE 85; RESP 16; TEMP 36.7; O2SAT 95
[2022-09-29] MEDS: Donepezil HCl 10 MG TABLET PO ×2 (19:58→19:59)
[2022-09-29] MEDS: traZODone HCL 50 MG TABLET PO (19:58)
[2022-09-30 08:25] VITALS: BP 141/69; PULSE 66; RESP 18; TEMP 36.3; O2SAT 95
[2022-09-30] MEDS: OLANZapine 5 MG TABLET PO ×2 (09:56→20:19)
--- NOTE | 2022-09-30 11:01 | HO.PSYCHPN ---
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 asking when she might be able to discharge, was redirected to speak with primary team on the [facility]. per staff, was trying to leave yesterday afternoon and getting agitated, was given ativan @ 2 pm with good effect. eating, slept about 5 hours overnight. wandered into male's room, wandering naked on the unit this morning. Mental Status Exam Mental Status Exam Patient Appearance: Well Grooomed and Appropriate Patient Orientation: Person and Situation Level of Consciousness: Awake Patient Behavior: Guarded and Passive Mood Description: Withdrawn Affect Description: Constricted Patient Cognition Impaired: Yes Ability to Follow Directions: Good Speech Pattern: Clear Hallucinations: None Delusions: Not Present Thought Process: Distracted and Evasive Thought Content: positive for [place] and positive for Poverty of Content Judgement: Fair Diagnostics Vital Signs (24Hr): Vital Signs - 24 hr 09/29/22 18:00 09/30/22 08:25 Temperature 98.1 F 97.4 F Pulse Rate 85 66 Respiratory Rate 16 18 Blood Pressure 138/79 141/69 H Pulse Oximetry 95 95 Oxygen Delivery Method Room Air Room Air BMI result Body Mass Index 21.1 Labs 09/22/22 09:12 Medications Medications Current Medications Acetaminophen (Acetaminophen 325 Mg Tablet) 650 mg PO Q6H PRN PRN Reason: Headache/Pain Mild Scale (1-3) Last Admin: 09/28/22 21:44 Dose: 650 mg Al Hydroxide/Mg Hydroxide (Magnesium Hydrox/Alum Hydrox 30 Ml Oral.Susp) 30 ml PO Q6H PRN PRN Reason: Heartburn/Nausea Donepezil HCl (Donepezil Hcl 10 Mg Tablet) 10 mg PO BEDTIME [facility] Last Admin: 09/29/22 19:59 Dose: 10 mg Lorazepam (Lorazepam 0.5 Mg Tablet) 0.5 mg PO Q8H PRN PRN Reason: Anxiety Last Admin: 09/29/22 14:00 Dose: 0.5 mg Magnesium Hydroxide (Milk Of Magnesia 30 Ml Oral.Susp) 30 ml PO DAILY PRN PRN Reason: Constipation Memantine (Memantine Hcl 5 Mg Tablet) 5 mg PO BEDTIME [facility] Last Admin: 09/29/22 19:59 Dose: 5 mg Olanzapine (Olanzapine 5 Mg Tablet) 5 mg PO BID [facility] Last Admin: 09/30/22 09:56 Dose: 5 mg Olanzapine (Olanzapine Odt 10 Mg Tab.Rapdis) 5 mg TRANSLINGU BID PRN PRN Reason: Psychosis Last Admin: 09/28/22 22:30 Dose: 5 mg Trazodone HCl (Trazodone Hcl 50 Mg Tablet) 50 mg PO BEDTIME MRX1 PRN PRN Reason: Insomnia Last Admin: 09/29/22 19:58 Dose: 50 mg Allergies Allergies Allergy/AdvReac Type Severity Reaction Status Date / Time cinnamon AdvReac Unknown Headache Verified 09/21/22 15:00 tuna oil AdvReac Unknown Unknown Verified 09/21/22 15:02 Bello agosto tea AdvReac Headache Uncoded 09/21/22 15:02 Assessment & Plan Assessment & Plan (1) Alzheimer's dementia: Status: Acute Code(s): G30.9 - Alzheimer's disease, unspecified; F02.80 - Dementia in other diseases classified elsewhere, unspecified severity, without behavioral disturbance, psychotic disturbance, mood disturbance, and anxiety (2) Psychosis: Status: Acute Code(s): F29 - Unspecified psychosis not due to a substance or known physiological condition Plan 87-year-old female with history of Alzheimer's dementia, osteoarthritis, and 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 #Azheimer's dementia -plan per psychiatry #Osteoarthritis multiple joints -tylenol prn #History dvt -not on AC -no calf tenderness #Impaired fasting glucose -165, was drawn at 912am, question whether this is fasting -Hgb A1c added on Thank you for allowing me to participate in this consult. Signing off at this time. Please do not hesitate to call for further questions. Plan 1. Gather collateral information. 2. Continue Zyprexa 5 mg p.o. b.i.d.. 3. Start Namenda 5 mg p.o. q.h.s.. 09/29: continue current mgmt. stable presentation. 09/30: continue current mgmt. periods of agitation regarding discharge, wandering the unit naked this morning. slept 5 hours. Reason for continued inpatient stay Substantial Risk for: inability to function and rapid decompensation Time Spent With Patient Time: Total time managing care of this patient today ____ minutes.
[2022-09-30 18:00] VITALS: BP 117/66; PULSE 96; RESP 16; TEMP 36.8; O2SAT 96
[2022-09-30] MEDS: traZODone HCL 50 MG TABLET PO (20:16)
[2022-09-30] MEDS: Acetaminophen 325 MG TABLET 650 MG PO (20:17)
[2022-09-30] MEDS: Donepezil HCl 10 MG TABLET PO (20:18)
[2022-10-01 07:53] VITALS: BP 137/65; PULSE 79; RESP 18; TEMP 36.3; O2SAT 95
[2022-10-01] MEDS: OLANZapine 5 MG TABLET PO ×2 (08:47→21:30)
--- NOTE | 2022-10-01 12:10 | HO.PSYCHPN ---
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 Reports that she remains confused at times, exit seeking and but redirectable. On interview, the patient reported that she wanted to go back home and she was worried about the bus. She was very confused but we redirected her . I explained her that we need to increase The child welfare social worker reported that we will have a family meeting Saturday at 13:00. Mental Status Exam Mental Status Exam Patient Appearance: Well Grooomed and Appropriate Patient Orientation: Person and Situation Level of Consciousness: Awake and Appropriate Patient Behavior: Guarded and Passive Mood Description: Calm and Constricted Affect Description: Calm and Constricted Patient Cognition Impaired: Yes Ability to Follow Directions: Good Speech Pattern: Clear and Impoverished Hallucinations: None Delusions: Not Present Thought Process: Distracted and Slowed Thinking Thought Content: positive for Loose Associations and positive for Tangential Judgement: Poor Diagnostics Vital Signs (24Hr): Vital Signs - 24 hr 09/30/22 18:00 10/01/22 07:53 Temperature 98.2 F 97.3 F Pulse Rate 96 79 Respiratory Rate 16 18 Blood Pressure 117/66 137/65 Pulse Oximetry 96 95 Oxygen Delivery Method Room Air Room Air BMI result Body Mass Index 21.1 Labs 09/22/22 09:12 Medications Medications Current Medications Acetaminophen (Acetaminophen 325 Mg Tablet) 650 mg PO Q6H PRN PRN Reason: Headache/Pain Mild Scale (1-3) Last Admin: 09/30/22 20:17 Dose: 650 mg Al Hydroxide/Mg Hydroxide (Magnesium Hydrox/Alum Hydrox 30 Ml Oral.Susp) 30 ml PO Q6H PRN PRN Reason: Heartburn/Nausea Donepezil HCl (Donepezil Hcl 10 Mg Tablet) 10 mg PO BEDTIME [facility] Last Admin: 09/30/22 20:18 Dose: 10 mg Magnesium Hydroxide (Milk Of Magnesia 30 Ml Oral.Susp) 30 ml PO DAILY PRN PRN Reason: Constipation Memantine (Memantine Hcl 5 Mg Tablet) 5 mg PO BID [facility] Olanzapine (Olanzapine 5 Mg Tablet) 5 mg PO BID [facility] Last Admin: 10/01/22 08:47 Dose: 5 mg Olanzapine (Olanzapine Odt 10 Mg Tab.Rapdis) 5 mg TRANSLINGU BID PRN PRN Reason: Psychosis Last Admin: 09/28/22 22:30 Dose: 5 mg Trazodone HCl (Trazodone Hcl 50 Mg Tablet) 50 mg PO BEDTIME MRX1 PRN PRN Reason: Insomnia Last Admin: 09/30/22 20:16 Dose: 50 mg Allergies Allergies Allergy/AdvReac Type Severity Reaction Status Date / Time cinnamon AdvReac Unknown Headache Verified 09/21/22 15:00 tuna oil AdvReac Unknown Unknown Verified 09/21/22 15:02 Bello agosto tea AdvReac Headache Uncoded 09/21/22 15:02 Assessment & Plan Assessment & Plan (1) Alzheimer's dementia: Status: Acute Code(s): G30.9 - Alzheimer's disease, unspecified; F02.80 - Dementia in other diseases classified elsewhere, unspecified severity, without behavioral disturbance, psychotic disturbance, mood disturbance, and anxiety (2) Psychosis: Status: Acute Code(s): F29 - Unspecified psychosis not due to a substance or known physiological condition Plan 87-year-old female with history of Alzheimer's dementia, osteoarthritis, and 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 #Azheimer's dementia -plan per psychiatry #Osteoarthritis multiple joints -tylenol prn #History dvt -not on AC -no calf tenderness #Impaired fasting glucose -165, was drawn at 912am, question whether this is fasting -Hgb A1c added on Thank you for allowing me to participate in this consult. Signing off at this time. Please do not hesitate to call for further questions. Plan 1. Gather collateral information. 2. Continue Zyprexa 5 mg p.o. b.i.d.. 3. Start Namenda 5 mg p.o. q.h.s.. Namenda was increased up to B.i.d. on October 01. Reason for continued inpatient stay Substantial Risk for: inability to function, rapid decompensation and med/psych decompensation Time Spent With Patient Time: Total time managing care of this patient today _20___ minutes.
[2022-10-01 18:00] VITALS: BP 143/70; PULSE 83; RESP 18; TEMP 36.3; O2SAT 97
[2022-10-01] MEDS: traZODone HCL 50 MG TABLET PO (21:30)
[2022-10-01] MEDS: Acetaminophen 325 MG TABLET 650 MG PO (21:30)
[2022-10-01] MEDS: Memantine HCl 5 MG TABLET PO (21:30)
[2022-10-01] MEDS: Donepezil HCl 10 MG TABLET PO (21:36)
[2022-10-02 05:50] VITALS: BP 138/70; PULSE 69; TEMP 36.2; O2SAT 93
[2022-10-02 08:01] VITALS: BP 143/82; PULSE 81; RESP 20; TEMP 36; O2SAT 96
[2022-10-02] MEDS: Memantine HCl 5 MG TABLET PO ×2 (09:21→20:53)
[2022-10-02] MEDS: OLANZapine 5 MG TABLET PO ×2 (09:21→16:09)
--- NOTE | 2022-10-02 13:03 | P.PNPSI_ITS ---
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 The social science analyst reported they spoke with [facility] we are waiting for a memory unit since she is very impaired. We will have a family meeting tomorrow with his son at 13:00. On interview the patient is very confused, explain her that we are changing the scheduling of her medications. Mental Status Exam Mental Status Exam Patient Appearance: Well Grooomed and Appropriate Patient Orientation: Person Level of Consciousness: Awake and Appropriate Patient Behavior: Guarded and Passive Mood Description: Calm and Constricted Affect Description: Calm Patient Cognition Impaired: Yes Ability to Follow Directions: Good Speech Pattern: Clear Hallucinations: None Delusions: Not Present Thought Process: Illogical, Distracted and Evasive Thought Content: positive for [place], positive for Poverty of Content, positive for Loose Associations and positive for Thought Blocking Judgement: Poor Diagnostics Vital Signs (24Hr): Vital Signs - 24 hr 10/01/22 18:00 10/02/22 05:50 10/02/22 08:01 Temperature 97.4 F 97.1 F 96.8 F Pulse Rate 83 69 81 Respiratory Rate 18 20 Blood Pressure 143/70 H 138/70 143/82 H Pulse Oximetry 97 93 96 Oxygen Delivery Method Room Air Room Air Room Air BMI result Body Mass Index 21.1 Labs 09/22/22 09:12 Medications Medications Current Medications Acetaminophen (Acetaminophen 325 Mg Tablet) 650 mg PO Q6H PRN PRN Reason: Headache/Pain Mild Scale (1-3) Last Admin: 10/01/22 21:30 Dose: 650 mg Al Hydroxide/Mg Hydroxide (Magnesium Hydrox/Alum Hydrox 30 Ml Oral.Susp) 30 ml PO Q6H PRN PRN Reason: Heartburn/Nausea Donepezil HCl (Donepezil Hcl 10 Mg Tablet) 10 mg PO BEDTIME [facility] Last Admin: 10/01/22 21:36 Dose: 10 mg Magnesium Hydroxide (Milk Of Magnesia 30 Ml Oral.Susp) 30 ml PO DAILY PRN PRN Reason: Constipation Memantine (Memantine Hcl 5 Mg Tablet) 5 mg PO BID [facility] Last Admin: 10/02/22 09:21 Dose: 5 mg Olanzapine (Olanzapine Odt 10 Mg Tab.Rapdis) 5 mg TRANSLINGU BID PRN PRN Reason: Psychosis Last Admin: 09/28/22 22:30 Dose: 5 mg Olanzapine (Olanzapine 5 Mg Tablet) 5 mg PO BID@0800,1700 [facility] Last Admin: 10/02/22 09:21 Dose: 5 mg Trazodone HCl (Trazodone Hcl 50 Mg Tablet) 50 mg PO BEDTIME MRX1 PRN PRN Reason: Insomnia Last Admin: 10/01/22 21:30 Dose: 50 mg Allergies Allergies Allergy/AdvReac Type Severity Reaction Status Date / Time cinnamon AdvReac Unknown Headache Verified 09/21/22 15:00 tuna oil AdvReac Unknown Unknown Verified 09/21/22 15:02 Bello agosto tea AdvReac Headache Uncoded 09/21/22 15:02 Assessment & Plan Assessment & Plan (1) Alzheimer's dementia: Status: Acute Code(s): G30.9 - Alzheimer's disease, unspecified; F02.80 - Dementia in other diseases classified elsewhere, unspecified severity, without behavioral disturbance, psychotic disturbance, mood disturbance, and anxiety (2) Psychosis: Status: Acute Code(s): F29 - Unspecified psychosis not due to a substance or known physiological condition Plan 87-year-old female with history of Alzheimer's dementia, osteoarthritis, and 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 #Azheimer's dementia -plan per psychiatry #Osteoarthritis multiple joints -tylenol prn #History dvt -not on AC -no calf tenderness #Impaired fasting glucose -165, was drawn at 912am, question whether this is fasting -Hgb A1c added on Thank you for allowing me to participate in this consult. Signing off at this time. Please do not hesitate to call for further questions. Plan 1. Gather collateral information. 2. Continue Zyprexa 5 mg p.o. b.i.d.. 3. Start Namenda 5 mg p.o. q.h.s.. Namenda was increased up to B.i.d. on October 01. Eventually we will increase it up to 10 mg p.o. b.i.d.. Reason for continued inpatient stay Substantial Risk for: inability to function, rapid decompensation and med/psych decompensation Time Spent With Patient Time: Total time managing care of this patient today _20___ minutes.
[2022-10-02] MEDS: OLANZapine ODT 10 MG TAB.RAPDIS 5 MG TRANSLINGU (14:36)
[2022-10-02 18:00] VITALS: BP 122/64; PULSE 91; RESP 18; TEMP 36.7; O2SAT 98
[2022-10-02] MEDS: traZODone HCL 50 MG TABLET PO ×2 (20:53→22:41)
[2022-10-02] MEDS: Donepezil HCl 10 MG TABLET PO (20:53)
[2022-10-02] MEDS: Acetaminophen 325 MG TABLET 650 MG PO (22:41)
[2022-10-03] MEDS: Memantine HCl 5 MG TABLET PO ×2 (08:21→20:07)
[2022-10-03] MEDS: OLANZapine 5 MG TABLET PO ×2 (08:21→16:56)
[2022-10-03 08:44] VITALS: BP 128/61; PULSE 82; RESP 18; TEMP 36.4; O2SAT 96
--- NOTE | 2022-10-03 10:20 | P.PNPSI_ITS ---
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 She has been alert and only and oriented to self. She needs constant redirection. The social sciences department chair reported we will have a family meeting today at 13:00 with 1 of her sons. On interview the patient denies side effects with the addition of Namenda thing. She is on Aricept also. Since the patient has poor sleep increase the p.r.n. trazodone up to 100 mg p.o. q.h.s. Mental Status Exam Mental Status Exam Patient Appearance: Well Grooomed and Appropriate Patient Orientation: Person Level of Consciousness: Awake Patient Behavior: Guarded and Passive Mood Description: Withdrawn Affect Description: Constricted Patient Cognition Impaired: Yes Ability to Follow Directions: Good Speech Pattern: Clear and Difficulty Finding Words Hallucinations: None Delusions: Not Present Thought Process: Illogical, Distracted and Slowed Thinking Thought Content: positive for [place] and positive for Poverty of Content Judgement: Poor Diagnostics Vital Signs (24Hr): Vital Signs - 24 hr 10/02/22 18:00 10/03/22 08:44 Temperature 98.1 F 97.6 F Pulse Rate 91 82 Respiratory Rate 18 18 Blood Pressure 122/64 128/61 Pulse Oximetry 98 96 Oxygen Delivery Method Room Air Room Air BMI result Body Mass Index 21.1 Labs 09/22/22 09:12 Medications Medications Current Medications Acetaminophen (Acetaminophen 325 Mg Tablet) 650 mg PO Q6H PRN PRN Reason: Headache/Pain Mild Scale (1-3) Last Admin: 10/02/22 22:41 Dose: 650 mg Al Hydroxide/Mg Hydroxide (Magnesium Hydrox/Alum Hydrox 30 Ml Oral.Susp) 30 ml PO Q6H PRN PRN Reason: Heartburn/Nausea Donepezil HCl (Donepezil Hcl 10 Mg Tablet) 10 mg PO BEDTIME [facility] Last Admin: 10/02/22 20:53 Dose: 10 mg Magnesium Hydroxide (Milk Of Magnesia 30 Ml Oral.Susp) 30 ml PO DAILY PRN PRN Reason: Constipation Memantine (Memantine Hcl 5 Mg Tablet) 5 mg PO BID [facility] Last Admin: 10/03/22 08:21 Dose: 5 mg Olanzapine (Olanzapine Odt 10 Mg Tab.Rapdis) 5 mg TRANSLINGU BID PRN PRN Reason: Psychosis Last Admin: 10/02/22 14:36 Dose: 5 mg Olanzapine (Olanzapine 5 Mg Tablet) 5 mg PO BID@0800,1700 [facility] Last Admin: 10/03/22 08:21 Dose: 5 mg Trazodone HCl (Trazodone Hcl 100 Mg Tablet) 100 mg PO BEDTIME MRX1 PRN PRN Reason: Insomnia Allergies Allergies Allergy/AdvReac Type Severity Reaction Status Date / Time cinnamon AdvReac Unknown Headache Verified 09/21/22 15:00 tuna oil AdvReac Unknown Unknown Verified 09/21/22 15:02 Bello agosto tea AdvReac Headache Uncoded 09/21/22 15:02 Assessment & Plan Assessment & Plan (1) Alzheimer's dementia: Status: Acute Code(s): G30.9 - Alzheimer's disease, unspecified; F02.80 - Dementia in other diseases classified elsewhere, unspecified severity, without behavioral disturbance, psychotic disturbance, mood disturbance, and anxiety (2) Psychosis: Status: Acute Code(s): F29 - Unspecified psychosis not due to a substance or known physiological condition Plan 87-year-old female with history of Alzheimer's dementia, osteoarthritis, and 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 #Azheimer's dementia -plan per psychiatry #Osteoarthritis multiple joints -tylenol prn #History dvt -not on AC -no calf tenderness #Impaired fasting glucose -165, was drawn at 912am, question whether this is fasting -Hgb A1c added on Thank you for allowing me to participate in this consult. Signing off at this time. Please do not hesitate to call for further questions. Plan 1. Gather collateral information. 2. Continue Zyprexa 5 mg p.o. b.i.d.. 3. Start Namenda 5 mg p.o. q.h.s.. Namenda was increased up to B.i.d. on October 01. Eventually we will increase it up to 10 mg p.o. b.i.d.. 4. Family meeting today at 13:00 for disposition Reason for continued inpatient stay Substantial Risk for: inability to function, rapid decompensation and med/psych decompensation Time Spent With Patient Time: Total time managing care of this patient today __20__ minutes.
[2022-10-03 18:00] VITALS: BP 120/62; PULSE 75; RESP 18; TEMP 36.5; O2SAT 95
[2022-10-03] MEDS: Donepezil HCl 10 MG TABLET PO (20:07)
[2022-10-03] MEDS: traZODone HCL 100 MG TABLET PO ×2 (20:08→21:28)
[2022-10-03] MEDS: Acetaminophen 325 MG TABLET 650 MG PO (20:08)
[2022-10-04 07:00] VITALS: BMI 19.9
[2022-10-04] MEDS: OLANZapine 5 MG TABLET PO ×2 (08:37→16:10)
[2022-10-04] MEDS: Memantine HCl 5 MG TABLET PO (08:37)
[2022-10-04 08:55] VITALS: BP 111/56; PULSE 86; RESP 18; TEMP 36.5; O2SAT 94
--- NOTE | 2022-10-04 11:30 | P.PNPSI_ITS ---
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 She complained of back pain and she received Tylenol. She needed trazodone twice at night. The social services manager met with that family and they are going to see facilities are on for discharge. On interview the patient remains pleasantly confused, we are increasing Namenda Pap to 10 mg p.o. b.i.d. to target dementia. Mental Status Exam Mental Status Exam Patient Appearance: Well Grooomed and Appropriate Patient Orientation: Person and Situation Level of Consciousness: Awake and Appropriate Patient Behavior: Guarded and Passive Mood Description: Withdrawn Affect Description: Calm Patient Cognition Impaired: Yes Ability to Follow Directions: Good Speech Pattern: Impoverished and Difficulty Finding Words Hallucinations: None Delusions: Not Present Thought Process: Distracted and Slowed Thinking Thought Content: positive for [place], positive for Poverty of Content and p ositive for Thought Blocking Judgement: Fair Diagnostics Vital Signs (24Hr): Vital Signs - 24 hr 10/03/22 18:00 10/04/22 08:55 Temperature 97.7 F 97.7 F Pulse Rate 75 86 Respiratory Rate 18 18 Blood Pressure 120/62 111/56 L Pulse Oximetry 95 94 Oxygen Delivery Method Room Air Room Air BMI result Body Mass Index 19.9 Labs 09/22/22 09:12 Medications Medications Current Medications Acetaminophen (Acetaminophen 325 Mg Tablet) 650 mg PO Q6H PRN PRN Reason: Headache/Pain Mild Scale (1-3) Last Admin: 10/03/22 20:08 Dose: 650 mg Al Hydroxide/Mg Hydroxide (Magnesium Hydrox/Alum Hydrox 30 Ml Oral.Susp) 30 ml PO Q6H PRN PRN Reason: Heartburn/Nausea Donepezil HCl (Donepezil Hcl 10 Mg Tablet) 10 mg PO BEDTIME [facility] Last Admin: 10/03/22 20:07 Dose: 10 mg Magnesium Hydroxide (Milk Of Magnesia 30 Ml Oral.Susp) 30 ml PO DAILY PRN PRN Reason: Constipation Memantine (Memantine Hcl 10 Mg Tablet) 10 mg PO BID [facility] Last Admin: 10/04/22 09:31 Dose: Not Given Olanzapine (Olanzapine Odt 10 Mg Tab.Rapdis) 5 mg TRANSLINGU BID PRN PRN Reason: Psychosis Last Admin: 10/02/22 14:36 Dose: 5 mg Olanzapine (Olanzapine 5 Mg Tablet) 5 mg PO BID@0800,1700 [facility] Last Admin: 10/04/22 08:37 Dose: 5 mg Trazodone HCl (Trazodone Hcl 100 Mg Tablet) 100 mg PO BEDTIME MRX1 PRN PRN Reason: Insomnia Last Admin: 10/03/22 21:28 Dose: 100 mg Allergies Allergies Allergy/AdvReac Type Severity Reaction Status Date / Time cinnamon AdvReac Unknown Headache Verified 09/21/22 15:00 tuna oil AdvReac Unknown Unknown Verified 09/21/22 15:02 Bello agosto tea AdvReac Headache Uncoded 09/21/22 15:02 Assessment & Plan Assessment & Plan (1) Alzheimer's dementia: Status: Acute Code(s): G30.9 - Alzheimer's disease, unspecified; F02.80 - Dementia in other diseases classified elsewhere, unspecified severity, without behavioral disturbance, psychotic disturbance, mood disturbance, and anxiety (2) Psychosis: Status: Acute Code(s): F29 - Unspecified psychosis not due to a substance or known physiological condition Plan 87-year-old female with history of Alzheimer's dementia, osteoarthritis, and 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 #Azheimer's dementia -plan per psychiatry #Osteoarthritis multiple joints -tylenol prn #History dvt -not on AC -no calf tenderness #Impaired fasting glucose -165, was drawn at 912am, question whether this is fasting -Hgb A1c added on Thank you for allowing me to participate in this consult. Signing off at this time. Please do not hesitate to call for further questions. Plan 1. Gather collateral information. 2. Continue Zyprexa 5 mg p.o. b.i.d.. 3. Start Namenda 5 mg p.o. q.h.s.. Namenda was increased up to B.i.d. on October 01. On October 04 we increased Namenda up to 10 mg p.o. b.i.d.. 4. Family meeting today at 13:00 for disposition. The family will visit local facilities for discharge planning. Reason for continued inpatient stay Substantial Risk for: inability to function, rapid decompensation and med/psych decompensation Time Spent With Patient Time: Total time managing care of this patient today __20__ minutes.
[2022-10-04 20:23] VITALS: BP 121/60; PULSE 89; RESP 18; TEMP 36.3; O2SAT 96
[2022-10-04] MEDS: Memantine HCl 10 MG TABLET PO (20:39)
[2022-10-04] MEDS: Donepezil HCl 10 MG TABLET PO (20:39)
[2022-10-05] MEDS: Memantine HCl 10 MG TABLET PO ×2 (10:50→20:28)
[2022-10-05] MEDS: OLANZapine 5 MG TABLET PO ×2 (10:50→17:05)
[2022-10-05] MEDS: traZODone HCL 25 MG HALFTAB 12.5 MG PO ×3 (10:56→20:27)
--- NOTE | 2022-10-05 14:42 | P.PNPSI_ITS ---
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 She had been pleasantly evening. She has been perseverative exit seeking stating that she needs to go to see her , her 3 years ago. The socially responsible investment adviser reported that his family visited and [facility] facility. On interview she looks anxious and I decided to add some trazodone 12.5 mg p.o. t.i.d. for anxiety. Still very pleasant but confused with poor short-term memory and word-finding. Mental Status Exam Mental Status Exam Patient Appearance: Well Grooomed and Appropriate Patient Orientation: Person and Situation Level of Consciousness: Awake and Appropriate Patient Behavior: Guarded and Passive Mood Description: Withdrawn Affect Description: Constricted Patient Cognition Impaired: Yes Ability to Follow Directions: Good Speech Pattern: Impoverished and Difficulty Finding Words Hallucinations: None Delusions: Not Present Thought Process: Distracted and Slowed Thinking Thought Content: positive for [place], positive for Poverty of Content and positive for Thought Blocking Judgement: Fair Diagnostics Vital Signs (24Hr): Vital Signs - 24 hr 10/04/22 20:23 Temperature 97.3 F Pulse Rate 89 Respiratory Rate 18 Blood Pressure 121/60 Pulse Oximetry 96 Oxygen Delivery Method Room Air BMI result Body Mass Index 19.9 Labs 09/22/22 09:12 Medications Medications Current Medications Acetaminophen (Acetaminophen 325 Mg Tablet) 650 mg PO Q6H PRN PRN Reason: Headache/Pain Mild Scale (1-3) Last Admin: 10/03/22 20:08 Dose: 650 mg Al Hydroxide/Mg Hydroxide (Magnesium Hydrox/Alum Hydrox 30 Ml Oral.Susp) 30 ml PO Q6H PRN PRN Reason: Heartburn/Nausea Donepezil HCl (Donepezil Hcl 10 Mg Tablet) 10 mg PO BEDTIME [facility] Last Admin: 10/04/22 20:39 Dose: 10 mg Magnesium Hydroxide (Milk Of Magnesia 30 Ml Oral.Susp) 30 ml PO DAILY PRN PRN Reason: Constipation Memantine (Memantine Hcl 10 Mg Tablet) 10 mg PO BID [facility] Last Admin: 10/05/22 10:50 Dose: 10 mg Olanzapine (Olanzapine Odt 10 Mg Tab.Rapdis) 5 mg TRANSLINGU BID PRN PRN Reason: Psychosis Last Admin: 10/02/22 14:36 Dose: 5 mg Olanzapine (Olanzapine 5 Mg Tablet) 5 mg PO BID@0800,1700 [facility] Last Admin: 10/05/22 10:50 Dose: 5 mg Trazodone HCl (Trazodone Hcl 100 Mg Tablet) 100 mg PO BEDTIME MRX1 PRN PRN Reason: Insomnia Last Admin: 10/03/22 21:28 Dose: 100 mg Trazodone HCl (Trazodone Hcl 25 Mg Halftab) 12.5 mg PO TID [facility] Last Admin: 10/05/22 10:56 Dose: 12.5 mg Allergies Allergies Allergy/AdvReac Type Severity Reaction Status Date / Time cinnamon AdvReac Unknown Headache Verified 09/21/22 15:00 tuna oil AdvReac Unknown Unknown Verified 09/21/22 15:02 Bello agosto tea AdvReac Headache Uncoded 09/21/22 15:02 Assessment & Plan Assessment & Plan (1) Alzheimer's dementia: Status: Acute Code(s): G30.9 - Alzheimer's disease, unspecified; F02.80 - Dementia in other diseases classified elsewhere, unspecified severity, without behavioral disturbance, psychotic disturbance, mood disturbance, and anxiety (2) Psychosis: Status: Acute Code(s): F29 - Unspecified psychosis not due to a substance or known physiological condition Plan 87-year-old female with history of Alzheimer's dementia, osteoarthritis, and 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 #Azheimer's dementia -plan per psychiatry #Osteoarthritis multiple joints -tylenol prn #History dvt -not on AC -no calf tenderness #Impaired fasting glucose -165, was drawn at 912am, question whether this is fasting -Hgb A1c added on Thank you for allowing me to participate in this consult. Signing off at this time. Please do not hesitate to call for further questions. Plan 1. Gather collateral information. 2. Continue Zyprexa 5 mg p.o. b.i.d.. 3. Start Namenda 5 mg p.o. q.h.s.. Namenda was increased up to B.i.d. on October 01. On October 04 we increased Namenda up to 10 mg p.o. b.i.d.. 4. Family meeting on October 04 at 13:00 for disposition. The family will visit local facilities for discharge planning. 5. Trazodone 12.5 mg p.o. t.i.d. to target anxiety. Reason for continued inpatient stay Substantial Risk for: inability to function, rapid decompensation and med/psych decompensation Time Spent With Patient Time: Total time managing care of this patient today __20__ minutes.
[2022-10-05 18:00] VITALS: BP 156/74; PULSE 89; RESP 18; TEMP 36.4; O2SAT 95
[2022-10-05] MEDS: traZODone HCL 100 MG TABLET PO (20:27)
[2022-10-05] MEDS: Acetaminophen 325 MG TABLET 650 MG PO (20:28)
[2022-10-05] MEDS: Donepezil HCl 10 MG TABLET PO (20:28)
[2022-10-06] MEDS: OLANZapine 5 MG TABLET PO ×2 (08:31→17:02)
[2022-10-06] MEDS: Memantine HCl 10 MG TABLET PO ×2 (08:31→21:00)
[2022-10-06] MEDS: traZODone HCL 25 MG HALFTAB 12.5 MG PO ×2 (08:31→21:00)
[2022-10-06 08:40] VITALS: BP 128/85; PULSE 68; RESP 18; TEMP 36.3; O2SAT 97
--- NOTE | 2022-10-06 15:53 | PC.NURSE ---
Dr. Connelly notified that Annabelle declined 1500 Trazodone 12.5mg.
--- NOTE | 2022-10-06 16:23 | HO.PSYCHPN ---
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 Appetite only fair. Sleeping OK. Refused trazodone dose this afternoon. Noted to be social with peers and steady gait. Less irritable overall. Some exit seeking Medication Compliance: Intermittent Side effects from medications: No Attending Groups: Yes Review of Systems Acute medical concerns: No Medical Review of Systems: unchanged Mental Status Exam Mental Status Exam Patient Appearance: Well Grooomed Patient Orientation: Person Level of Consciousness: Awake Patient Behavior: Guarded and Wandering Mood Description: Calm Affect Description: Cheerful Patient Cognition Impaired: Yes Ability to Follow Directions: Fair Speech Pattern: Clear Memory Description: Working Impaired Hallucinations: None Delusions: Not Present Thought Process: Illogical Thought Content: positive for Disorganized Abnormal Motor Activity Signs and Symptoms: Restlessness Judgement: Fair Diagnostics Vital Signs (24Hr): Vital Signs - 24 hr 10/05/22 18:00 10/06/22 08:40 Temperature 97.6 F 97.3 F Pulse Rate 89 68 Respiratory Rate 18 18 Blood Pressure 156/74 H 128/85 Pulse Oximetry 95 97 Oxygen Delivery Method Room Air Room Air BMI result Body Mass Index 19.9 Labs 09/22/22 09:12 Medications Medications Current Medications Acetaminophen (Acetaminophen 325 Mg Tablet) 650 mg PO Q6H PRN PRN Reason: Headache/Pain Mild Scale (1-3) Last Admin: 10/05/22 20:28 Dose: 650 mg Al Hydroxide/Mg Hydroxide (Magnesium Hydrox/Alum Hydrox 30 Ml Oral.Susp) 30 ml PO Q6H PRN PRN Reason: Heartburn/Nausea Donepezil HCl (Donepezil Hcl 10 Mg Tablet) 10 mg PO BEDTIME [facility] Last Admin: 10/05/22 20:28 Dose: 10 mg Magnesium Hydroxide (Milk Of Magnesia 30 Ml Oral.Susp) 30 ml PO DAILY PRN PRN Reason: Constipation Memantine (Memantine Hcl 10 Mg Tablet) 10 mg PO BID [facility] Last Admin: 10/06/22 08:31 Dose: 10 mg Olanzapine (Olanzapine Odt 10 Mg Tab.Rapdis) 5 mg TRANSLINGU BID PRN PRN Reason: Psychosis Last Admin: 10/02/22 14:36 Dose: 5 mg Olanzapine (Olanzapine 5 Mg Tablet) 5 mg PO BID@0800,1700 [facility] Last Admin: 10/06/22 08:31 Dose: 5 mg Trazodone HCl (Trazodone Hcl 100 Mg Tablet) 100 mg PO BEDTIME MRX1 PRN PRN Reason: Insomnia Last Admin: 10/05/22 20:27 Dose: 100 mg Trazodone HCl (Trazodone Hcl 25 Mg Halftab) 12.5 mg PO TID [facility] Last Admin: 10/06/22 15:48 Dose: Not Given Allergies Allergies Allergy/AdvReac Type Severity Reaction Status Date / Time cinnamon AdvReac Unknown Headache Verified 09/21/22 15:00 tuna oil AdvReac Unknown Unknown Verified 09/21/22 15:02 Bello agosto tea AdvReac Headache Uncoded 09/21/22 15:02 Assessment & Plan Assessment & Plan (1) Alzheimer's dementia: Status: Acute Code(s): G30.9 - Alzheimer's disease, unspecified; F02.80 - Dementia in other diseases classified elsewhere, unspecified severity, without behavioral disturbance, psychotic disturbance, mood disturbance, and anxiety Assessment and Plan: Namenda just increased (2) Psychosis: Status: Acute Code(s): F29 - Unspecified psychosis not due to a substance or known physiological condition Assessment and Plan: Continue current doses of zyprexa and trazodone. Monitor sleep and appetite Plan 87-year-old female with history of Alzheimer's dementia, osteoarthritis, and 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 #Azheimer's dementia -plan per psychiatry #Osteoarthritis multiple joints -tylenol prn #History dvt -not on AC -no calf tenderness #Impaired fasting glucose -165, was drawn at 912am, question whether this is fasting -Hgb A1c added on Thank you for allowing me to participate in this consult. Signing off at this time. Please do not hesitate to call for further questions. Plan 1. Gather collateral information. 2. Continue Zyprexa 5 mg p.o. b.i.d.. 3. Start Namenda 5 mg p.o. q.h.s.. Namenda was increased up to B.i.d. on October 01. On October 04 we increased Namenda up to 10 mg p.o. b.i.d.. 4. Family meeting on October 04 at 13:00 for disposition. The family will visit local facilities for discharge planning. 5. Trazodone 12.5 mg p.o. t.i.d. to target anxiety. Reason for continued inpatient stay Substantial Risk for: inability to function Time Spent With Patient Time: Total time managing care of this patient today _20___ minutes.
[2022-10-06 18:00] VITALS: BP 123/57; PULSE 79; RESP 18; TEMP 36.6; O2SAT 79
[2022-10-06] MEDS: Acetaminophen 325 MG TABLET 650 MG PO (20:59)
[2022-10-06] MEDS: traZODone HCL 100 MG TABLET PO (21:00)
[2022-10-06] MEDS: Donepezil HCl 10 MG TABLET PO (21:00)
[2022-10-07 07:57] VITALS: BP 131/63; PULSE 69; RESP 20; TEMP 36.1; O2SAT 96
[2022-10-07] MEDS: Memantine HCl 10 MG TABLET PO ×2 (12:10→20:44)
[2022-10-07] MEDS: OLANZapine 5 MG TABLET PO ×2 (12:11→16:54)
[2022-10-07] MEDS: traZODone HCL 25 MG HALFTAB 12.5 MG PO ×3 (12:11→20:40)
--- NOTE | 2022-10-07 12:52 | P.PNPSI_ITS ---
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 Has been exit-seeking at times. Medication Compliance: Intermittent (refused trazodone yesterday evening) Side effects from medications: No Attending Groups: Intermittent Review of Systems Acute medical concerns: No Medical Review of Systems: unchanged Mental Status Exam Mental Status Exam Patient Appearance: Well Grooomed Patient Orientation: Person Level of Consciousness: Alert Patient Behavior: Wandering and Resistive to Care Mood Description: Calm Affect Description: Cheerful Ability to Follow Directions: Good Speech Pattern: Clear Memory Description: Intact and Working Impaired Hallucinations: None Delusions: Not Present Thought Process: Confusion Thought Content: positive for Disorganized Judgement: Fair Diagnostics Vital Signs (24Hr): Vital Signs - 24 hr 10/06/22 18:00 10/07/22 07:57 Temperature 97.8 F 97.0 F Pulse Rate 79 69 Respiratory Rate 18 20 Blood Pressure 123/57 L 131/63 Pulse Oximetry 79 L 96 Oxygen Delivery Method Room Air Room Air BMI result Body Mass Index 19.9 Labs 09/22/22 09:12 Medications Medications Current Medications Acetaminophen (Acetaminophen 325 Mg Tablet) 650 mg PO Q6H PRN PRN Reason: Headache/Pain Mild Scale (1-3) Last Admin: 10/06/22 20:59 Dose: 650 mg Al Hydroxide/Mg Hydroxide (Magnesium Hydrox/Alum Hydrox 30 Ml Oral.Susp) 30 ml PO Q6H PRN PRN Reason: Heartburn/Nausea Donepezil HCl (Donepezil Hcl 10 Mg Tablet) 10 mg PO BEDTIME [facility] Last Admin: 10/06/22 21:00 Dose: 10 mg Magnesium Hydroxide (Milk Of Magnesia 30 Ml Oral.Susp) 30 ml PO DAILY PRN PRN Reason: Constipation Memantine (Memantine Hcl 10 Mg Tablet) 10 mg PO BID [facility] Last Admin: 10/07/22 12:10 Dose: 10 mg Olanzapine (Olanzapine Odt 10 Mg Tab.Rapdis) 5 mg TRANSLINGU BID PRN PRN Reason: Psychosis Last Admin: 10/02/22 14:36 Dose: 5 mg Olanzapine (Olanzapine 5 Mg Tablet) 5 mg PO BID@0800,1700 [facility] Last Admin: 10/07/22 12:11 Dose: 5 mg Trazodone HCl (Trazodone Hcl 100 Mg Tablet) 100 mg PO BEDTIME MRX1 PRN PRN Reason: Insomnia Last Admin: 10/06/22 21:00 Dose: 100 mg Trazodone HCl (Trazodone Hcl 25 Mg Halftab) 12.5 mg PO TID [facility] Last Admin: 10/07/22 12:11 Dose: 12.5 mg Allergies Allergies Allergy/AdvReac Type Severity Reaction Status Date / Time cinnamon AdvReac Unknown Headache Verified 09/21/22 15:00 tuna oil AdvReac Unknown Unknown Verified 09/21/22 15:02 Bello agosto tea AdvReac Headache Uncoded 09/21/22 15:02 Assessment & Plan Assessment & Plan (1) Alzheimer's dementia: Status: Acute Code(s): G30.9 - Alzheimer's disease, unspecified; F02.80 - Dementia in other diseases classified elsewhere, unspecified severity, without behavioral disturbance, psychotic disturbance, mood disturbance, and anxiety Assessment and Plan: Namenda just increased (2) Psychosis: Status: Acute Code(s): F29 - Unspecified psychosis not due to a substance or known physiological condition Assessment and Plan: Continue current doses of zyprexa and trazodone. 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 #Azheimer's dementia -plan per psychiatry #Osteoarthritis multiple joints -tylenol prn #History dvt -not on AC -no calf tenderness #Impaired fasting glucose -165, was drawn at 912am, question whether this is fasting -Hgb A1c added on Thank you for allowing me to participate in this consult. Signing off at this ti me. Please do not hesitate to call for further questions. Plan 1. Gather collateral information. 2. Continue Zyprexa 5 mg p.o. b.i.d.. 3. Start Namenda 5 mg p.o. q.h.s.. Namenda was increased up to B.i.d. on October 01. On October 04 we increased Namenda up to 10 mg p.o. b.i.d.. 4. Family meeting on October 04 at 13:00 for disposition. The family will visit local facilities for discharge planning. 5. Trazodone 12.5 mg p.o. t.i.d. to target anxiety. Reason for continued inpatient stay Substantial Risk for: inability to function Time Spent With Patient Time: Total time managing care of this patient today _15___ minutes.
[2022-10-07 18:00] VITALS: BP 119/58; PULSE 76; RESP 16; TEMP 36.8; O2SAT 96
[2022-10-07] MEDS: Acetaminophen 325 MG TABLET 650 MG PO (20:41)
[2022-10-07] MEDS: Donepezil HCl 10 MG TABLET PO (20:41)
[2022-10-07] MEDS: OLANZapine ODT 10 MG TAB.RAPDIS 5 MG TRANSLINGU (23:28)
[2022-10-07] MEDS: traZODone HCL 100 MG TABLET PO (23:30)
[2022-10-08] MEDS: traZODone HCL 100 MG TABLET PO ×2 (01:17→20:26)
--- NOTE | 2022-10-08 08:22 | HO.PSYCHPN ---
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 On interview the patient is pleasantly confused, waiting for placement at this point. Mental Status Exam Mental Status Exam Patient Appearance: Well Grooomed and Appropriate Patient Orientation: Person and Situation Level of Consciousness: Awake and Appropriate Patient Behavior: Guarded and Passive Mood Description: Withdrawn Affect Description: Constricted Patient Cognition Impaired: Yes Ability to Follow Directions: Fair Speech Pattern: Clear, Impoverished and Difficulty Finding Words Hallucinations: None Delusions: Not Present Thought Process: Illogical, Distracted and Slowed Thinking Thought Content: positive for [place] and positive for Circumstantial Judgement: Poor Diagnostics Vital Signs (24Hr): Vital Signs - 24 hr 10/07/22 18:00 Temperature 98.2 F Pulse Rate 76 Respiratory Rate 16 Blood Pressure 119/58 L Pulse Oximetry 96 Oxygen Delivery Method Room Air BMI result Body Mass Index 19.9 Labs 09/22/22 09:12 Medications Medications Current Medications Acetaminophen (Acetaminophen 325 Mg Tablet) 650 mg PO Q6H PRN PRN Reason: Headache/Pain Mild Scale (1-3) Last Admin: 10/07/22 20:41 Dose: 650 mg Al Hydroxide/Mg Hydroxide (Magnesium Hydrox/Alum Hydrox 30 Ml Oral.Susp) 30 ml PO Q6H PRN PRN Reason: Heartburn/Nausea Donepezil HCl (Donepezil Hcl 10 Mg Tablet) 10 mg PO BEDTIME [facility] Last Admin: 10/07/22 20:41 Dose: 10 mg Magnesium Hydroxide (Milk Of Magnesia 30 Ml Oral.Susp) 30 ml PO DAILY PRN PRN Reason: Constipation Memantine (Memantine Hcl 10 Mg Tablet) 10 mg PO BID [facility] Last Admin: 10/07/22 20:44 Dose: 10 mg Olanzapine (Olanzapine Odt 10 Mg Tab.Rapdis) 5 mg TRANSLINGU BID PRN PRN Reason: Psychosis Last Admin: 10/07/22 23:28 Dose: 5 mg Olanzapine (Olanzapine 5 Mg Tablet) 5 mg PO BID@0800,1700 [facility] Last Admin: 10/07/22 16:54 Dose: 5 mg Trazodone HCl (Trazodone Hcl 100 Mg Tablet) 100 mg PO BEDTIME X1 PRN PRN Reason: Insomnia Last Admin: 10/08/22 01:17 Dose: 100 mg Trazodone HCl (Trazodone Hcl 25 Mg Halftab) 12.5 mg PO TID [facility] Last Admin: 10/07/22 20:40 Dose: 12.5 mg Allergies Allergies Allergy/AdvReac Type Severity Reaction Status Date / Time cinnamon AdvReac Unknown Headache Verified 09/21/22 15:00 tuna oil AdvReac Unknown Unknown Verified 09/21/22 15:02 Bello agosto tea AdvReac Headache Uncoded 09/21/22 15:02 Assessment & Plan Assessment & Plan (1) Alzheimer's dementia: Status: Acute Code(s): G30.9 - Alzheimer's disease, unspecified; F02.80 - Dementia in other diseases classified elsewhere, unspecified severity, without behavioral disturbance, psychotic disturbance, mood disturbance, and anxiety Assessment and Plan: Namenda just increased (2) Psychosis: Status: Acute Code(s): F29 - Unspecified psychosis not due to a substance or known physiological condition Assessment and Plan: Continue current doses of zyprexa and trazodone. 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 #Azheimer's dementia -plan per psychiatry #Osteoarthritis multiple joints -tylenol prn #History dvt -not on AC -no calf tenderness #Impaired fasting glucose -165, was drawn at 912am, question whether this is fasting -Hgb A1c added on Thank you for allowing me to participate in this consult. Signing off at this time. Please do not hesitate to call for further questions. Plan 1. Gather collateral information. 2. Continue Zyprexa 5 mg p.o. b.i.d.. 3. Start Namenda 5 mg p.o. q.h.s.. Namenda was increased up to B.i.d. on October 01. On October 04 we increased Namenda up to 10 mg p.o. b.i.d.. 4. Family meeting on October 04 at 13:00 for disposition. The family will visit local facilities for discharge planning. 5. Trazodone 12.5 mg p.o. t.i.d. to target anxiety. Reason for continued inpatient stay Substantial Risk for: inability to function, rapid decompensation and med/psych decompensation Time Spent With Patient Time: Total time managing care of this patient today __20__ minutes.
[2022-10-08 08:40] VITALS: BP 134/65; PULSE 73; RESP 20; TEMP 36; O2SAT 98
[2022-10-08] MEDS: traZODone HCL 25 MG HALFTAB 12.5 MG PO ×3 (08:42→20:26)
[2022-10-08] MEDS: Memantine HCl 10 MG TABLET PO ×2 (08:43→20:26)
[2022-10-08] MEDS: OLANZapine 5 MG TABLET PO ×2 (08:43→16:03)
[2022-10-08 18:00] VITALS: BP 106/55; PULSE 79; RESP 20; TEMP 36.3; O2SAT 94
[2022-10-08] MEDS: Donepezil HCl 10 MG TABLET PO (20:26)
--- NOTE | 2022-10-09 02:30 | PC.NURSE ---
PRN meds pulled at 2:30am acetaminophen 650mg, Trazodone 100mg and olanzapine 5mg Annabelle refused all meds all were wasted
[2022-10-09 09:02] VITALS: BP 114/58; PULSE 76; RESP 16; TEMP 36.4; O2SAT 98
[2022-10-09] MEDS: Memantine HCl 10 MG TABLET PO ×2 (09:03→20:54)
[2022-10-09] MEDS: OLANZapine 5 MG TABLET PO ×2 (09:03→15:59)
--- NOTE | 2022-10-09 14:54 | P.PNPSI_ITS ---
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, wi Subjective Notes: Conditional Voluntary Mental Status Exam Mental Status Exam Patient Appearance: Well Grooomed and Appropriate Patient Orientation: Person and Situation Level of Consciousness: Awake and Appropriate Patient Behavior: Guarded and Passive Mood Description: Suspicious and Withdrawn Affect Description: Calm Patient Cognition Impaired: Yes Ability to Follow Directions: Good Speech Pattern: Clear Hallucinations: None Delusions: Not Present Thought Process: Distracted and Linear Thought Content: positive for [place] and positive for Circumstantial Judgement: Fair Diagnostics Vital Signs (24Hr): Vital Signs - 24 hr 10/08/22 18:00 10/09/22 09:02 Temperature 97.3 F 97.5 F Pulse Rate 79 76 Respiratory Rate 20 16 Blood Pressure 106/55 L 114/58 L Pulse Oximetry 94 98 Oxygen Delivery Method Room Air Room Air BMI result Body Mass Index 19.9 Labs 09/22/22 09:12 Medications Medications Current Medications Acetaminophen (Acetaminophen 325 Mg Tablet) 650 mg PO Q6H PRN PRN Reason: Headache/Pain Mild Scale (1-3) Last Admin: 10/07/22 20:41 Dose: 650 mg Al Hydroxide/Mg Hydroxide (Magnesium Hydrox/Alum Hydrox 30 Ml Oral.Susp) 30 ml PO Q6H PRN PRN Reason: Heartburn/Nausea Donepezil HCl (Donepezil Hcl 10 Mg Tablet) 10 mg PO BEDTIME [facility] Last Admin: 10/08/22 20:26 Dose: 10 mg Magnesium Hydroxide (Milk Of Magnesia 30 Ml Oral.Susp) 30 ml PO DAILY PRN PRN Reason: Constipation Memantine (Memantine Hcl 10 Mg Tablet) 10 mg PO BID [facility] Last Admin: 10/09/22 09:03 Dose: 10 mg Olanzapine (Olanzapine Odt 10 Mg Tab.Rapdis) 5 mg TRANSLINGU BID PRN PRN Reason: Psychosis Last Admin: 10/07/22 23:28 Dose: 5 mg Olanzapine (Olanzapine 5 Mg Tablet) 5 mg PO BID@0800,1700 [facility] Last Admin: 10/09/22 09:03 Dose: 5 mg Trazodone HCl (Trazodone Hcl 100 Mg Tablet) 100 mg PO BEDTIME MRX1 PRN PRN Reason: Insomnia Last Admin: 10/08/22 01:17 Dose: 100 mg Trazodone HCl (Trazodone Hcl 25 Mg Halftab) 12.5 mg PO TID [facility] Last Admin: 10/09/22 09:11 Dose: Not Given Trazodone HCl (Trazodone Hcl 100 Mg Tablet) 100 mg PO BEDTIME [facility] Last Admin: 10/08/22 20:26 Dose: 100 mg Allergies Allergies Allergy/AdvReac Type Severity Reaction Status Date / Time cinnamon AdvReac Unknown Headache Verified 09/21/22 15:00 tuna oil AdvReac Unknown Unknown Verified 09/21/22 15:02 Bello agosto tea AdvReac Headache Uncoded 09/21/22 15:02 Assessment & Plan Assessment & Plan (1) Alzheimer's dementia: Status: Acute Code(s): G30.9 - Alzheimer's disease, unspecified; F02.80 - Dementia in other diseases classified elsewhere, unspecified severity, without behavioral disturbance, psychotic disturbance, mood disturbance, and anxiety Assessment and Plan: Namenda just increased (2) Psychosis: Status: Acute Code(s): F29 - Unspecified psychosis not due to a substance or known physiological condition Assessment and Plan: Continue current doses of zyprexa and trazodone. Monitor sleep and appetite 10/07:no med changes Plan 87-year-old female with history of Alzheimer's dementia, osteoarthritis, and hi story of 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 #Azheimer's dementia -plan per psychiatry #Osteoarthritis multiple joints -tylenol prn #History dvt -not on AC -no calf tenderness #Impaired fasting glucose -165, was drawn at 912am, question whether this is fasting -Hgb A1c added on Thank you for allowing me to participate in this consult. Signing off at this time. Please do not hesitate to call for further questions. Plan 1. Gather collateral information. 2. Continue Zyprexa 5 mg p.o. b.i.d.. 3. Start Namenda 5 mg p.o. q.h.s.. Namenda was increased up to B.i.d. on October 01. On October 04 we increased Namenda up to 10 mg p.o. b.i.d.. 4. Family meeting on October 04 at 13:00 for disposition. The family will visit local facilities for discharge planning. 5. Trazodone 12.5 mg p.o. t.i.d. to target anxiety. Reason for continued inpatient stay Substantial Risk for: inability to function, rapid decompensation and med/psych decompensation Time Spent With Patient Time: Total time managing care of this patient today __20__ minutes.
[2022-10-09] MEDS: traZODone HCL 25 MG HALFTAB 12.5 MG PO ×2 (15:58→20:53)
[2022-10-09 18:00] VITALS: BP 117/56; PULSE 79; RESP 18; TEMP 36.2; O2SAT 97
[2022-10-09] MEDS: Donepezil HCl 10 MG TABLET PO (20:53)
[2022-10-09] MEDS: traZODone HCL 100 MG TABLET PO (20:54)
[2022-10-10 06:00] VITALS: BP 128/59; PULSE 82; RESP 16; TEMP 36; O2SAT 96
[2022-10-10] MEDS: OLANZapine 5 MG TABLET PO ×2 (08:45→18:19)
[2022-10-10] MEDS: traZODone HCL 25 MG HALFTAB 12.5 MG PO ×3 (09:05→20:44)
--- NOTE | 2022-10-10 10:38 | HO.PSYCHPN ---
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 Last night the staff reported that she was disrobing herself. The social services analyst reported that the [facility] accepted her but there will be a bed available on October 22. On interview the patient denies new symptoms, waiting for placement. Mental Status Exam Mental Status Exam Patient Appearance: Well Grooomed and Appropriate Patient Orientation: Person Level of Consciousness: Awake Patient Behavior: Guarded and Passive Mood Description: Withdrawn Affect Description: Constricted Patient Cognition Impaired: Yes Ability to Follow Directions: Fair Speech Pattern: Clear Hallucinations: None Delusions: Not Present Thought Process: Distracted and Evasive Thought Content: positive for [place] and positive for Poverty of Content Judgement: Fair Diagnostics Vital Signs (24Hr): Vital Signs - 24 hr 10/09/22 18:00 10/10/22 06:00 Temperature 97.2 F 96.8 F Pulse Rate 79 82 Respiratory Rate 18 16 Blood Pressure 117/56 L 128/59 L Pulse Oximetry 97 96 Oxygen Delivery Method Room Air Room Air BMI result Body Mass Index 19.9 Labs 09/22/22 09:12 Medications Medications Current Medications Acetaminophen (Acetaminophen 325 Mg Tablet) 650 mg PO Q6H PRN PRN Reason: Headache/Pain Mild Scale (1-3) Last Admin: 10/07/22 20:41 Dose: 650 mg Al Hydroxide/Mg Hydroxide (Magnesium Hydrox/Alum Hydrox 30 Ml Oral.Susp) 30 ml PO Q6H PRN PRN Reason: Heartburn/Nausea Donepezil HCl (Donepezil Hcl 10 Mg Tablet) 10 mg PO BEDTIME [facility] Last Admin: 10/09/22 20:53 Dose: 10 mg Magnesium Hydroxide (Milk Of Magnesia 30 Ml Oral.Susp) 30 ml PO DAILY PRN PRN Reason: Constipation Memantine (Memantine Hcl 10 Mg Tablet) 10 mg PO BID [facility] Last Admin: 10/10/22 09:08 Dose: Not Given Olanzapine (Olanzapine Odt 10 Mg Tab.Rapdis) 5 mg TRANSLINGU BID PRN PRN Reason: Psychosis Last Admin: 10/07/22 23:28 Dose: 5 mg Olanzapine (Olanzapine 5 Mg Tablet) 5 mg PO BID@0800,1700 [facility] Last Admin: 10/10/22 08:45 Dose: 5 mg Trazodone HCl (Trazodone Hcl 100 Mg Tablet) 100 mg PO BEDTIME MRX1 PRN PRN Reason: Insomnia Last Admin: 10/08/22 01:17 Dose: 100 mg Trazodone HCl (Trazodone Hcl 25 Mg Halftab) 12.5 mg PO TID [facility] Last Admin: 10/10/22 09:05 Dose: 12.5 mg Trazodone HCl (Trazodone Hcl 100 Mg Tablet) 100 mg PO BEDTIME [facility] Last Admin: 10/09/22 20:54 Dose: 100 mg Allergies Allergies Allergy/AdvReac Type Severity Reaction Status Date / Time cinnamon AdvReac Unknown Headache Verified 09/21/22 15:00 tuna oil AdvReac Unknown Unknown Verified 09/21/22 15:02 Bello agosto tea AdvReac Headache Uncoded 09/21/22 15:02 Assessment & Plan Assessment & Plan (1) Alzheimer's dementia: Status: Acute Code(s): G30.9 - Alzheimer's disease, unspecified; F02.80 - Dementia in other diseases classified elsewhere, unspecified severity, without behavioral disturbance, psychotic disturbance, mood disturbance, and anxiety Assessment and Plan: Namenda just increased (2) Psychosis: Status: Acute Code(s): F29 - Unspecified psychosis not due to a substance or known physiological condition Assessment and Plan: Continue current doses of zyprexa and trazodone. 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 #Azheimer's dementia -plan per psychiatry #Osteoarthritis multiple joints -tylenol prn #History dvt -not on AC -no calf tenderness #Impaired fasting glucose -165, was drawn at 912am, question whether this is fasting -Hgb A1c added on Thank you for allowing me to participate in this consult. Signing off at this time. Please do not hesitate to call for further questions. Plan 1. Gather collateral information. 2. Continue Zyprexa 5 mg p.o. b.i.d.. 3. Start Namenda 5 mg p.o. q.h.s.. Namenda was increased up to B.i.d. on October 01. On October 04 we increased Namenda up to 10 mg p.o. b.i.d.. We increased Aricept to 10 mg p.o. q.h.s. on the week of September. 4. Family meeting on October 04 at 13:00 for disposition. The family will visit local facilities for discharge planning. 5. Trazodone 12.5 mg p.o. t.i.d. to target anxiety. 6. Waiting for placement. Reason for continued inpatient stay Substantial Risk for: inability to function, rapid decompensation and med/psych decompensation Time Spent With Patient Time: Total time managing care of this patient today __20__ minutes.
[2022-10-10] MEDS: Acetaminophen 325 MG TABLET 650 MG PO (10:42)
[2022-10-10 18:00] VITALS: BP 135/65; PULSE 88; RESP 20; TEMP 36.6; O2SAT 96
[2022-10-10] MEDS: traZODone HCL 100 MG TABLET PO (20:44)
[2022-10-10] MEDS: Memantine HCl 10 MG TABLET PO (20:44)
[2022-10-10] MEDS: Donepezil HCl 10 MG TABLET PO (20:44)
[2022-10-11 07:00] VITALS: BMI 20.8
[2022-10-11 08:00] VITALS: BP 121/63; PULSE 72; RESP 18; TEMP 37.1; O2SAT 95
[2022-10-11] MEDS: Memantine HCl 10 MG TABLET PO ×2 (09:36→20:20)
[2022-10-11] MEDS: OLANZapine 5 MG TABLET PO ×2 (09:36→16:53)
[2022-10-11] MEDS: traZODone HCL 25 MG HALFTAB 12.5 MG PO ×3 (09:37→20:18)
--- NOTE | 2022-10-11 13:15 | HO.PSYCHPN ---
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 The social media campaign manager reported that she will discharge to a detention facility in October 22. On interview the patient is pleasantly confused no new symptoms. Mental Status Exam Mental Status Exam Patient Appearance: Appropriate Patient Orientation: Person and Situation Level of Consciousness: Awake and Appropriate Patient Behavior: Guarded and Passive Mood Description: Withdrawn Affect Description: Constricted Patient Cognition Impaired: Yes Ability to Follow Directions: Good Speech Pattern: Clear Hallucinations: None Delusions: Not Present Thought Process: Distracted and Slowed Thinking Thought Content: positive for [place] and positive for Poverty of Content Judgement: Poor Diagnostics Vital Signs (24Hr): Vital Signs - 24 hr 10/10/22 18:00 10/11/22 08:00 Temperature 97.9 F 98.8 F Pulse Rate 88 72 Respiratory Rate 20 18 Blood Pressure 135/65 121/63 Pulse Oximetry 96 95 Oxygen Delivery Method Room Air Room Air BMI result Body Mass Index 20.8 Labs 09/22/22 09:12 Medications Medications Current Medications Acetaminophen (Acetaminophen 325 Mg Tablet) 650 mg PO Q6H PRN PRN Reason: Headache/Pain Mild Scale (1-3) Last Admin: 10/10/22 10:42 Dose: 650 mg Al Hydroxide/Mg Hydroxide (Magnesium Hydrox/Alum Hydrox 30 Ml Oral.Susp) 30 ml PO Q6H PRN PRN Reason: Heartburn/Nausea Donepezil HCl (Donepezil Hcl 10 Mg Tablet) 10 mg PO BEDTIME [facility] Last Admin: 10/10/22 20:44 Dose: 10 mg Magnesium Hydroxide (Milk Of Magnesia 30 Ml Oral.Susp) 30 ml PO DAILY PRN PRN Reason: Constipation Memantine (Memantine Hcl 10 Mg Tablet) 10 mg PO BID [facility] Last Admin: 10/11/22 09:36 Dose: 10 mg Olanzapine (Olanzapine Odt 10 Mg Tab.Rapdis) 5 mg TRANSLINGU BID PRN PRN Reason: Psychosis Last Admin: 10/07/22 23:28 Dose: 5 mg Olanzapine (Olanzapine 5 Mg Tablet) 5 mg PO BID@0800,1700 [facility] Last Admin: 10/11/22 09:36 Dose: 5 mg Trazodone HCl (Trazodone Hcl 100 Mg Tablet) 100 mg PO BEDTIME MRX1 PRN PRN Reason: Insomnia Last Admin: 10/08/22 01:17 Dose: 100 mg Trazodone HCl (Trazodone Hcl 25 Mg Halftab) 12.5 mg PO TID [facility] Last Admin: 10/11/22 09:37 Dose: 12.5 mg Trazodone HCl (Trazodone Hcl 100 Mg Tablet) 100 mg PO BEDTIME [facility] Last Admin: 10/10/22 20:44 Dose: 100 mg Allergies Allergies Allergy/AdvReac Type Severity Reaction Status Date / Time cinnamon AdvReac Unknown Headache Verified 09/21/22 15:00 tuna oil AdvReac Unknown Unknown Verified 09/21/22 15:02 Bello agosto tea AdvReac Headache Uncoded 09/21/22 15:02 Assessment & Plan Assessment & Plan (1) Alzheimer's dementia: Status: Acute Code(s): G30.9 - Alzheimer's disease, unspecified; F02.80 - Dementia in other diseases classified elsewhere, unspecified severity, without behavioral disturbance, psychotic disturbance, mood disturbance, and anxiety Assessment and Plan: Namenda just increased (2) Psychosis: Status: Acute Code(s): F29 - Unspecified psychosis not due to a substance or known physiological condition Assessment and Plan: Continue current doses of zyprexa and trazodone. 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 #Azheimer's dementia -plan per psychiatry #Osteoarthritis multiple joints -tylenol prn #History dvt -not on AC -no calf tenderness #Impaired fasting glucose -165, was drawn at 912am, question whether this is fasting -Hgb A1c added on Thank you for allowing me to participate in this consult. Signing off at this time. Please do not hesitate to call for further questions. Plan 1. Gather collateral information. 2. Continue Zyprexa 5 mg p.o. b.i.d.. 3. Start Namenda 5 mg p.o. q.h.s.. Namenda was increased up to B.i.d. on October 01. On October 04 we increased Namenda up to 10 mg p.o. b.i.d.. We increased Aricept to 10 mg p.o. q.h.s. on the week of September. 4. Family meeting on October 04 at 13:00 for disposition. The family will visit local facilities for discharge planning. 5. Trazodone 12.5 mg p.o. t.i.d. to target anxiety. 6. Waiting for placement. Reason for continued inpatient stay Substantial Risk for: inability to function, rapid decompensation and med/psych decompensation Time Spent With Patient Time: Total time managing care of this patient today _20___ minutes.
[2022-10-11 18:00] VITALS: BP 132/69; PULSE 99; RESP 18; TEMP 36.4; O2SAT 96
[2022-10-11] MEDS: traZODone HCL 100 MG TABLET PO (20:19)
[2022-10-11] MEDS: Acetaminophen 325 MG TABLET 650 MG PO (20:19)
[2022-10-11] MEDS: Donepezil HCl 10 MG TABLET PO (20:19)
[2022-10-12 09:34] VITALS: BP 133/69; PULSE 79; RESP 18; TEMP 36.4; O2SAT 95
[2022-10-12] MEDS: traZODone HCL 25 MG HALFTAB 12.5 MG PO ×3 (09:38→20:26)
[2022-10-12] MEDS: OLANZapine 5 MG TABLET PO ×2 (09:41→16:29)
[2022-10-12] MEDS: Memantine HCl 10 MG TABLET PO ×2 (09:41→20:26)
--- NOTE | 2022-10-12 14:36 | HO.PSYCHPN ---
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 On interview the patient denies new symptoms pleasantly confused. Waiting for placement. Mental Status Exam Mental Status Exam Patient Appearance: Well Grooomed Patient Orientation: Person and Situation Level of Consciousness: Awake Patient Behavior: Cooperative Mood Description: Withdrawn Affect Description: Constricted Patient Cognition Impaired: Yes Ability to Follow Directions: Good Speech Pattern: Clear Hallucinations: None Delusions: Not Present Thought Process: Distracted Thought Content: positive for [place] and positive for Poverty of Content Judgement: Fair Diagnostics Vital Signs (24Hr): Vital Signs - 24 hr 10/11/22 18:00 10/12/22 09:34 Temperature 97.5 F 97.6 F Pulse Rate 99 79 Respiratory Rate 18 18 Blood Pressure 132/69 133/69 Pulse Oximetry 96 95 Oxygen Delivery Method Room Air Room Air BMI result Body Mass Index 20.8 Labs 09/22/22 09:12 Medications Medications Current Medications Acetaminophen (Acetaminophen 325 Mg Tablet) 650 mg PO Q6H PRN PRN Reason: Headache/Pain Mild Scale (1-3) Last Admin: 10/11/22 20:19 Dose: 650 mg Al Hydroxide/Mg Hydroxide (Magnesium Hydrox/Alum Hydrox 30 Ml Oral.Susp) 30 ml PO Q6H PRN PRN Reason: Heartburn/Nausea Donepezil HCl (Donepezil Hcl 10 Mg Tablet) 10 mg PO BEDTIME [facility] Last Admin: 10/11/22 20:19 Dose: 10 mg Magnesium Hydroxide (Milk Of Magnesia 30 Ml Oral.Susp) 30 ml PO DAILY PRN PRN Reason: Constipation Memantine (Memantine Hcl 10 Mg Tablet) 10 mg PO BID [facility] Last Admin: 10/12/22 09:41 Dose: 10 mg Olanzapine (Olanzapine Odt 10 Mg Tab.Rapdis) 5 mg TRANSLINGU BID PRN PRN Reason: Psychosis Last Admin: 10/07/22 23:28 Dose: 5 mg Olanzapine (Olanzapine 5 Mg Tablet) 5 mg PO BID@0800,1700 [facility] Last Admin: 10/12/22 09:41 Dose: 5 mg Trazodone HCl (Trazodone Hcl 100 Mg Tablet) 100 mg PO BEDTIME MRX1 PRN PRN Reason: Insomnia Last Admin: 10/08/22 01:17 Dose: 100 mg Trazodone HCl (Trazodone Hcl 25 Mg Halftab) 12.5 mg PO TID [facility] Last Admin: 10/12/22 09:38 Dose: 12.5 mg Trazodone HCl (Trazodone Hcl 100 Mg Tablet) 100 mg PO BEDTIME [facility] Last Admin: 10/11/22 20:19 Dose: 100 mg Allergies Allergies Allergy/AdvReac Type Severity Reaction Status Date / Time cinnamon AdvReac Unknown Headache Verified 09/21/22 15:00 tuna oil AdvReac Unknown Unknown Verified 09/21/22 15:02 Bello agosto tea AdvReac Headache Uncoded 09/21/22 15:02 Assessment & Plan Assessment & Plan (1) Alzheimer's dementia: Status: Acute Code(s): G30.9 - Alzheimer's disease, unspecified; F02.80 - Dementia in other diseases classified elsewhere, unspecified severity, without behavioral disturbance, psychotic disturbance, mood disturbance, and anxiety Assessment and Plan: Namenda just increased (2) Psychosis: Status: Acute Code(s): F29 - Unspecified psychosis not due to a substance or known physiological condition Assessment and Plan: Continue current doses of zyprexa and trazodone. 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 #Azheimer's dementia -plan per psychiatry #Osteoarthritis multiple joints -tylenol prn #History dvt -not on AC -no calf tenderness #Impaired fasting glucose -165, was drawn at 912am, question whether this is fasting -Hgb A1c added on Thank you for allowing me to participate in this consult. Signing off at this time. Please do not hesitate to call for further questions. Plan 1. Gather collateral information. 2. Continue Zyprexa 5 mg p.o. b.i.d.. 3. Start Namenda 5 mg p.o. q.h.s.. Namenda was increased up to B.i.d. on October 01. On October 04 we increased Namenda up to 10 mg p.o. b.i.d.. We increased Aricept to 10 mg p.o. q.h.s. on the week of September. 4. Family meeting on October 04 at 13:00 for disposition. The family will visit local facilities for discharge planning. 5. Trazodone 12.5 mg p.o. t.i.d. to target anxiety. 6. Waiting for placement. Reason for continued inpatient stay Substantial Risk for: inability to function, rapid decompensation and med/psych decompensation Time Spent With Patient Time: Total time managing care of this patient today __20 __ minutes.
[2022-10-12] MEDS: OLANZapine ODT 10 MG TAB.RAPDIS 5 MG TRANSLINGU (18:22)
[2022-10-12 19:35] VITALS: BP 109/54; PULSE 80; TEMP 37.3; O2SAT 96
[2022-10-12] MEDS: Donepezil HCl 10 MG TABLET PO (20:26)
[2022-10-12] MEDS: traZODone HCL 100 MG TABLET PO (20:26)
[2022-10-13] MEDS: traZODone HCL 25 MG HALFTAB 12.5 MG PO ×3 (09:03→19:58)
[2022-10-13] MEDS: Memantine HCl 10 MG TABLET PO ×2 (09:04→20:00)
[2022-10-13] MEDS: OLANZapine 5 MG TABLET PO ×2 (09:04→16:31)
[2022-10-13 09:33] VITALS: BP 118/58; PULSE 80; RESP 18; TEMP 36.3; O2SAT 95
--- NOTE | 2022-10-13 09:52 | HO.PSYCHPN ---
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 This morning, pt anxious about leaving this place as she states her is waiting for her. She states she saw him earlier but she thinks he does not know where she is and she needs to go and find him. Pt redirected. No combative, but pacing unit. She is eating well and taking medications. Medication Compliance: Yes Review of Systems Review of Systems General: No fevers, malaise, unintentional weight loss HEENT: No blurred vision, diplopia. No sore throat, nasal congestion, rhinorrhea, sinus pain, ear pain Cardiovascular: No chest pain, palpitations, or leg edema Respiratory: No shortness of breath, wheezing, cough GI: No abdominal pain, nausea, vomiting, diarrhea, constipation, melena, hematochezia : No dysuria, hematuria, increased urinary frequency, decreased urinary output MSK: No myalgia, back pain Neuro: No headaches, weakness, paresthesias Skin: No rashes or lesions Yes all other systems are reviewed and are negative Mental Status Exam Mental Status Exam Patient Appearance: Well Grooomed Patient Orientation: Person and Situation Level of Consciousness: Awake Patient Behavior: Cooperative Mood Description: Withdrawn Affect Description: Constricted Patient Cognition Impaired: Yes Ability to Follow Directions: Good Speech Pattern: Clear Memory Description: Intact and Working Impaired Diagnostics Vital Signs (24Hr): Vital Signs - 24 hr 10/12/22 19:35 10/13/22 09:33 Temperature 99.1 F 97.4 F Pulse Rate 80 80 Respiratory Rate 18 Blood Pressure 109/54 L 118/58 L Pulse Oximetry 96 95 Oxygen Delivery Method Room Air Room Air BMI result Body Mass Index 20.8 Labs 09/22/22 09:12 Medications Medications Current Medications Acetaminophen (Acetaminophen 325 Mg Tablet) 650 mg PO Q6H PRN PRN Reason: Headache/Pain Mild Scale (1-3) Last Admin: 10/11/22 20:19 Dose: 650 mg Al Hydroxide/Mg Hydroxide (Magnesium Hydrox/Alum Hydrox 30 Ml Oral.Susp) 30 ml PO Q6H PRN PRN Reason: Heartburn/Nausea Donepezil HCl (Donepezil Hcl 10 Mg Tablet) 10 mg PO BEDTIME [facility] Last Admin: 10/12/22 20:26 Dose: 10 mg Magnesium Hydroxide (Milk Of Magnesia 30 Ml Oral.Susp) 30 ml PO DAILY PRN PRN Reason: Constipation Memantine (Memantine Hcl 10 Mg Tablet) 10 mg PO BID [facility] Last Admin: 10/13/22 09:04 Dose: 10 mg Olanzapine (Olanzapine Odt 10 Mg Tab.Rapdis) 5 mg TRANSLINGU BID PRN PRN Reason: Psychosis Last Admin: 10/12/22 18:22 Dose: 5 mg Olanzapine (Olanzapine 5 Mg Tablet) 5 mg PO BID@0800,1700 [facility] Last Admin: 10/13/22 09:04 Dose: 5 mg Trazodone HCl (Trazodone Hcl 100 Mg Tablet) 100 mg PO BEDTIME MRX1 PRN PRN Reason: Insomnia Last Admin: 10/08/22 01:17 Dose: 100 mg Trazodone HCl (Trazodone Hcl 25 Mg Halftab) 12.5 mg PO TID [facility] Last Admin: 10/13/22 09:03 Dose: 12.5 mg Trazodone HCl (Trazodone Hcl 100 Mg Tablet) 100 mg PO BEDTIME [facility] Last Admin: 10/12/22 20:26 Dose: 100 mg Allergies Allergies Allergy/AdvReac Type Severity Reaction Status Date / Time cinnamon AdvReac Unknown Headache Verified 09/21/22 15:00 tuna oil AdvReac Unknown Unknown Verified 09/21/22 15:02 Bello agosto tea AdvReac Headache Uncoded 09/21/22 15:02 Assessment & Plan Assessment & Plan (1) Alzheimer's dementia: Status: Acute Code(s): G30.9 - Alzheimer's disease, unspecified; F02.80 - Dementia in other diseases classified elsewhere, unspecified severity, without behavioral disturbance, psychotic disturbance, mood disturbance, and anxiety Assessment and Plan: Namenda just increased (2) Psychosis: Status: Acute Code(s): F29 - Unspecified psychosis not due to a substance or known physiological condition Assessment and Plan: Continue current doses of zyprexa and trazodone. 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 #Azheimer's dementia -plan per psychiatry #Osteoarthritis multiple joints -tylenol prn #History dvt -not on AC -no calf tenderness #Impaired fasting glucose -165, was drawn at 912am, question whether this is fasting -Hgb A1c added on Thank you for allowing me to participate in this consult. Signing off at this time. Please do not hesitate to call for further questions. Plan 1. Gather collateral information. 2. Continue Zyprexa 5 mg p.o. b.i.d.. 3. Start Namenda 5 mg p.o. q.h.s.. Namenda was increased up to B.i.d. on October 01. On October 04 we increased Namenda up to 10 mg p.o. b.i.d.. We increased Aricept to 10 mg p.o. q.h.s. on the week of September. 4. Family meeting on October 04 at 13:00 for disposition. The family will visit local facilities for discharge planning. 5. Trazodone 12.5 mg p.o. t.i.d. to target anxiety. 6. Waiting for placement. 10/13 continue tx. Reason for continued inpatient stay Substantial Risk for: inability to function Time Spent With Patient Time: Total time managing care of this patient today ____ minutes.
[2022-10-13 18:00] VITALS: BP 134/63; PULSE 83; RESP 18; TEMP 36.6; O2SAT 95
[2022-10-13] MEDS: traZODone HCL 100 MG TABLET PO (19:58)
[2022-10-13] MEDS: OLANZapine ODT 10 MG TAB.RAPDIS 5 MG TRANSLINGU (19:59)
[2022-10-13] MEDS: Donepezil HCl 10 MG TABLET PO (19:59)
[2022-10-14 08:27] VITALS: BP 158/74; PULSE 63; RESP 18; TEMP 36.2; O2SAT 95
[2022-10-14] MEDS: Memantine HCl 10 MG TABLET PO ×2 (09:05→21:18)
[2022-10-14] MEDS: OLANZapine 5 MG TABLET PO ×2 (09:05→16:45)
[2022-10-14] MEDS: traZODone HCL 25 MG HALFTAB 12.5 MG PO ×3 (09:05→21:17)
--- NOTE | 2022-10-14 12:07 | HO.PSYCHPN ---
Subjective Subjective Date of Service: 10/14/22 Reason For Visit: DSM 5 Diagnosis:/ F43.25) Adjustment disorders, wi Interim History: Pt with some difficulty staying asleep and up for part of the night last night. This morning,pt sitting calmly in common area asking if someone can assist her find her room, wash her teeth and clean herself up. Pt pleasant on approach. She is eating well and taking medications. BP slightly elevated SBP in 150's- not her usual, therefore won't make any changes today. Review of Systems Review of Systems General: No fevers, malaise, unintentional weight loss HEENT: No blurred vision, diplopia. No sore throat, nasal congestion, rhinorrhea, sinus pain, ear pain Cardiovascular: No chest pain, palpitations, or leg edema Respiratory: No shortness of breath, wheezing, cough GI: No abdominal pain, nausea, vomiting, diarrhea, constipation, melena, hematochezia : No dysuria, hematuria, increased urinary frequency, decreased urinary output MSK: No myalgia, back pain Neuro: No headaches, weakness, paresthesias Skin: No rashes or lesions Yes all other systems are reviewed and are negative Mental Status Exam Mental Status Exam Patient Appearance: Well Grooomed Patient Orientation: Person and Situation Level of Consciousness: Awake Patient Behavior: Cooperative Mood Description: Withdrawn Affect Description: Constricted Patient Cognition Impaired: Yes Ability to Follow Directions: Good Speech Pattern: Clear Memory Description: Intact and Working Impaired Diagnostics Vital Signs (24Hr): Vital Signs - 24 hr 10/13/22 18:00 10/14/22 08:27 Temperature 97.8 F 97.1 F Pulse Rate 83 63 Respiratory Rate 18 18 Blood Pressure 134/63 158/74 H Pulse Oximetry 95 95 Oxygen Delivery Method Room Air Room Air BMI result Body Mass Index 20.8 Labs 09/22/22 09:12 Medications Medications Current Medications Acetaminophen (Acetaminophen 325 Mg Tablet) 650 mg PO Q6H PRN PRN Reason: Headache/Pain Mild Scale (1-3) Last Admin: 10/11/22 20:19 Dose: 650 mg Al Hydroxide/Mg Hydroxide (Magnesium Hydrox/Alum Hydrox 30 Ml Oral.Susp) 30 ml PO Q6H PRN PRN Reason: Heartburn/Nausea Donepezil HCl (Donepezil Hcl 10 Mg Tablet) 10 mg PO BEDTIME [facility] Last Admin: 10/13/22 19:59 Dose: 10 mg Magnesium Hydroxide (Milk Of Magnesia 30 Ml Oral.Susp) 30 ml PO DAILY PRN PRN Reason: Constipation Memantine (Memantine Hcl 10 Mg Tablet) 10 mg PO BID [facility] Last Admin: 10/14/22 09:05 Dose: 10 mg Olanzapine (Olanzapine Odt 10 Mg Tab.Rapdis) 5 mg TRANSLINGU BID PRN PRN Reason: Psychosis Last Admin: 10/13/22 19:59 Dose: 5 mg Olanzapine (Olanzapine 5 Mg Tablet) 5 mg PO BID@0800,1700 [facility] Last Admin: 10/14/22 09:05 Dose: 5 mg Trazodone HCl (Trazodone Hcl 100 Mg Tablet) 100 mg PO BEDTIME MRX1 PRN PRN Reason: Insomnia Last Admin: 10/08/22 01:17 Dose: 100 mg Trazodone HCl (Trazodone Hcl 25 Mg Halftab) 12.5 mg PO TID [facility] Last Admin: 10/14/22 09:05 Dose: 12.5 mg Trazodone HCl (Trazodone Hcl 100 Mg Tablet) 100 mg PO BEDTIME [facility] Last Admin: 10/13/22 19:58 Dose: 100 mg Allergies Allergies Allergy/AdvReac Type Severity Reaction Status Date / Time cinnamon AdvReac Unknown Headache Verified 09/21/22 15:00 tuna oil AdvReac Unknown Unknown Verified 09/21/22 15:02 Bello agosto tea AdvReac Headache Uncoded 09/21/22 15:02 Assessment & Plan Assessment & Plan (1) Alzheimer's dementia: Status: Acute Code(s): G30.9 - Alzheimer's disease, unspecified; F02.80 - Dementia in other diseases classified elsewhere, unspecified severity, without behavioral disturbance, psychotic disturbance, mood disturbance, and anxiety Assessment and Plan: Namenda just increased (2) Psychosis: Status: Acute Code(s): F29 - Unspecified psychosis not due to a substance or known physiological condition Assessment and Plan: Continue current doses of zyprexa and trazodone. 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 #Azheimer's dementia -plan per psychiatry #Osteoarthritis multiple joints -tylenol prn #History dvt -not on AC -no calf tenderness #Impaired fasting glucose -165, was drawn at 912am, question whether this is fasting -Hgb A1c added on Thank you for allowing me to participate in this consult. Signing off at this time. Please do not hesitate to call for further questions. Plan 1. Gather collateral information. 2. Continue Zyprexa 5 mg p.o. b.i.d.. 3. Start Namenda 5 mg p.o. q.h.s.. Namenda was increased up to B.i.d. on October 01. On October 04 we increased Namenda up to 10 mg p.o. b.i.d.. We increased Aricept to 10 mg p.o. q.h.s. on the week of September. 4. Family meeting on October 04 at 13:00 for disposition. The family will visit local facilities for discharge planning. 5. Trazodone 12.5 mg p.o. t.i.d. to target anxiety. 6. Waiting for placement. 10/13 continue tx. 10/14 continue tx. Reason for continued inpatient stay Substantial Risk for: inability to function Time Spent With Patient Time: Total time managing care of this patient today ____ minutes.
[2022-10-14 18:00] VITALS: BP 129/63; PULSE 75; RESP 16; TEMP 36.2; O2SAT 95
[2022-10-14] MEDS: Donepezil HCl 10 MG TABLET PO (21:17)
[2022-10-14] MEDS: traZODone HCL 100 MG TABLET PO (21:18)
[2022-10-14] MEDS: Acetaminophen 325 MG TABLET 650 MG PO (21:18)
[2022-10-15 08:24] VITALS: BP 129/62; PULSE 78; RESP 18; TEMP 36.5; O2SAT 95
[2022-10-15] MEDS: traZODone HCL 25 MG HALFTAB 12.5 MG PO ×3 (08:26→20:50)
[2022-10-15] MEDS: Memantine HCl 10 MG TABLET PO ×2 (08:26→20:50)
[2022-10-15] MEDS: OLANZapine 5 MG TABLET PO ×2 (08:29→16:42)
--- NOTE | 2022-10-15 10:31 | HO.PSYCHPN ---
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 She slept well last night. On interview the patient is pleasantly confused with difficulties finding words. She was speaking on [place] asking to go back home. I explained her that she will be discharge on October 22 to SNF and his son is aware of it but she was confused. No side effects with the increase of medications for dementia. Mental Status Exam Mental Status Exam Patient Appearance: Well Grooomed and Appropriate Patient Orientation: Person and Situation Level of Consciousness: Awake and Appropriate Patient Behavior: Guarded and Passive Mood Description: Withdrawn Affect Description: Constricted Patient Cognition Impaired: Yes Ability to Follow Directions: Good Speech Pattern: Clear and Difficulty Finding Words Hallucinations: None Delusions: Not Present Thought Process: Distracted and Slowed Thinking Judgement: Poor Diagnostics Vital Signs (24Hr): Vital Signs - 24 hr 10/14/22 18:00 10/15/22 08:24 Temperature 97.2 F 97.7 F Pulse Rate 75 78 Respiratory Rate 16 18 Blood Pressure 129/63 129/62 Pulse Oximetry 95 95 Oxygen Delivery Method Room Air Room Air BMI result Body Mass Index 20.8 Labs 09/22/22 09:12 Medications Medications Current Medications Acetaminophen (Acetaminophen 325 Mg Tablet) 650 mg PO Q6H PRN PRN Reason: Headache/Pain Mild Scale (1-3) Last Admin: 10/14/22 21:18 Dose: 650 mg Al Hydroxide/Mg Hydroxide (Magnesium Hydrox/Alum Hydrox 30 Ml Oral.Susp) 30 ml PO Q6H PRN PRN Reason: Heartburn/Nausea Donepezil HCl (Donepezil Hcl 10 Mg Tablet) 10 mg PO BEDTIME [facility] Last Admin: 10/14/22 21:17 Dose: 10 mg Magnesium Hydroxide (Milk Of Magnesia 30 Ml Oral.Susp) 30 ml PO DAILY PRN PRN Reason: Constipation Memantine (Memantine Hcl 10 Mg Tablet) 10 mg PO BID [facility] Last Admin: 10/15/22 08:26 Dose: 10 mg Olanzapine (Olanzapine Odt 10 Mg Tab.Rapdis) 5 mg TRANSLINGU BID PRN PRN Reason: Psychosis Last Admin: 10/13/22 19:59 Dose: 5 mg Olanzapine (Olanzapine 5 Mg Tablet) 5 mg PO BID@0800,1700 [facility] Last Admin: 10/15/22 08:29 Dose: 5 mg Trazodone HCl (Trazodone Hcl 100 Mg Tablet) 100 mg PO BEDTIME MRX1 PRN PRN Reason: Insomnia Last Admin: 10/08/22 01:17 Dose: 100 mg Trazodone HCl (Trazodone Hcl 25 Mg Halftab) 12.5 mg PO TID [facility] Last Admin: 10/15/22 08:26 Dose: 12.5 mg Trazodone HCl (Trazodone Hcl 100 Mg Tablet) 100 mg PO BEDTIME [facility] Last Admin: 10/14/22 21:18 Dose: 100 mg Allergies Allergies Allergy/AdvReac Type Severity Reaction Status Date / Time cinnamon AdvReac Unknown Headache Verified 09/21/22 15:00 tuna oil AdvReac Unknown Unknown Verified 09/21/22 15:02 Bello agosto tea AdvReac Headache Uncoded 09/21/22 15:02 Assessment & Plan Assessment & Plan (1) Alzheimer's dementia: Status: Acute Code(s): G30.9 - Alzheimer's disease, unspecified; F02.80 - Dementia in other diseases classified elsewhere, unspecified severity, without behavioral disturbance, psychotic disturbance, mood disturbance, and anxiety Assessment and Plan: Namenda just increased (2) Psychosis: Status: Acute Code(s): F29 - Unspecified psychosis not due to a substance or known physiological condition Assessment and Plan: Continue current doses of zyprexa and trazodone. 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 #Azheimer's dementia -plan per psychiatry #Osteoarthritis multiple joints -tylenol prn #History dvt -not on AC -no calf tenderness #Impaired fasting glucose -165, was drawn at 912am, question whether this is fasting -Hgb A1c added on Thank you for allowing me to participate in this consult. Signing off at this time. Please do not hesitate to call for further questions. Plan 1. Gather collateral information. 2. Continue Zyprexa 5 mg p.o. b.i.d.. 3. Start Namenda 5 mg p.o. q.h.s.. Namenda was increased up to B.i.d. on October 01. On October 04 we increased Namenda up to 10 mg p.o. b.i.d.. We increased Aricept to 10 mg p.o. q.h.s. on the week of September. 4. Family meeting on October 04 at 13:00 for disposition. The family will visit local facilities for discharge planning. 5. Trazodone 12.5 mg p.o. t.i.d. to target anxiety. 6. Waiting for placement. Reason for continued inpatient stay Substantial Risk for: inability to function, rapid decompensation and med/psych decompensation Time Spent With Patient Time: Total time managing care of this patient today _20___ minutes.
[2022-10-15] MEDS: OLANZapine ODT 10 MG TAB.RAPDIS 5 MG TRANSLINGU (14:04)
[2022-10-15 18:00] VITALS: BP 100/49; PULSE 71; RESP 18; TEMP 36.3; O2SAT 95
[2022-10-15] MEDS: Donepezil HCl 10 MG TABLET PO (20:50)
[2022-10-15] MEDS: traZODone HCL 100 MG TABLET PO (20:50)
[2022-10-16] MEDS: Memantine HCl 10 MG TABLET PO ×2 (08:48→20:39)
[2022-10-16] MEDS: OLANZapine 5 MG TABLET PO ×2 (08:48→16:33)
[2022-10-16] MEDS: traZODone HCL 25 MG HALFTAB 12.5 MG PO ×3 (08:49→20:39)
[2022-10-16 09:21] VITALS: BP 113/59; PULSE 86; RESP 16; TEMP 36.6; O2SAT 93
--- NOTE | 2022-10-16 09:30 | HO.PSYCHPN ---
Subjective Subjective Date of Service: 10/16/22 Reason For Visit: DSM 5 Diagnosis:/ F43.25) Adjustment disorders, wi Subjective Notes: Conditional Voluntary (By healthcare proxy) Healthcare Proxy: Yes Interim History: The nursing staff reported the patient has been confused, she shows some exit seeking behavior but easily redirectable. The manager social media reported that his family will transfer her to the [facility] on October 22. On interview the patient denies new symptoms, confused with word finding but easily redirectable. Mental Status Exam Mental Status Exam Patient Appearance: Well Grooomed and Appropriate Patient Orientation: Person Level of Consciousness: Awake Patient Behavior: Guarded and Passive Mood Description: Withdrawn Affect Description: Constricted Patient Cognition Impaired: Yes Ability to Follow Directions: Good Speech Pattern: Clear and Difficulty Finding Words Hallucinations: None Delusions: Not Present Thought Process: Illogical and Slowed Thinking Thought Content: positive for [place], positive for Poverty of Content and positive for Thought Blocking Judgement: Poor Diagnostics Vital Signs (24Hr): Vital Signs - 24 hr 10/15/22 18:00 10/16/22 09:21 Temperature 97.4 F 97.9 F Pulse Rate 71 86 Respiratory Rate 18 16 Blood Pressure 100/49 L 113/59 L Pulse Oximetry 95 93 Oxygen Delivery Method Room Air Room Air BMI result Body Mass Index 20.8 Labs 09/22/22 09:12 Medications Medications Current Medications Acetaminophen (Acetaminophen 325 Mg Tablet) 650 mg PO Q6H PRN PRN Reason: Headache/Pain Mild Scale (1-3) Last Admin: 10/14/22 21:18 Dose: 650 mg Al Hydroxide/Mg Hydroxide (Magnesium Hydrox/Alum Hydrox 30 Ml Oral.Susp) 30 ml PO Q6H PRN PRN Reason: Heartburn/Nausea Donepezil HCl (Donepezil Hcl 10 Mg Tablet) 10 mg PO BEDTIME [facility] Last Admin: 10/15/22 20:50 Dose: 10 mg Magnesium Hydroxide (Milk Of Magnesia 30 Ml Oral.Susp) 30 ml PO DAILY PRN PRN Reason: Constipation Memantine (Memantine Hcl 10 Mg Tablet) 10 mg PO BID [facility] Last Admin: 10/16/22 08:48 Dose: 10 mg Olanzapine (Olanzapine Odt 10 Mg Tab.Rapdis) 5 mg TRANSLINGU BID PRN PRN Reason: Psychosis Last Admin: 10/15/22 14:04 Dose: 5 mg Olanzapine (Olanzapine 5 Mg Tablet) 5 mg PO BID@0800,1700 [facility] Last Admin: 10/16/22 08:48 Dose: 5 mg Trazodone HCl (Trazodone Hcl 100 Mg Tablet) 100 mg PO BEDTIME MRX1 PRN PRN Reason: Insomnia Last Admin: 10/08/22 01:17 Dose: 100 mg Trazodone HCl (Trazodone Hcl 25 Mg Halftab) 12.5 mg PO TID [facility] Last Admin: 10/16/22 08:49 Dose: 12.5 mg Trazodone HCl (Trazodone Hcl 100 Mg Tablet) 100 mg PO BEDTIME [facility] Last Admin: 10/15/22 20:50 Dose: 100 mg Allergies Allergies Allergy/AdvReac Type Severity Reaction Status Date / Time cinnamon AdvReac Unknown Headache Verified 09/21/22 15:00 tuna oil AdvReac Unknown Unknown Verified 09/21/22 15:02 Bello agosto tea AdvReac Headache Uncoded 09/21/22 15:02 Assessment & Plan Assessment & Plan (1) Alzheimer's dementia: Status: Acute Code(s): G30.9 - Alzheimer's disease, unspecified; F02.80 - Dementia in other diseases classified elsewhere, unspecified severity, without behavioral disturbance, psychotic disturbance, mood disturbance, and anxiety Assessment and Plan: Namenda just increased (2) Psychosis: Status: Acute Code(s): F29 - Unspecified psychosis not due to a substance or known physiological condition Assessment and Plan: Continue current doses of zyprexa and trazodone. 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 #Azheimer's dementia -plan per psychiatry #Osteoarthritis multiple joints -tylenol prn #History dvt -not on AC -no calf tenderness #Impaired fasting glucose -165, was drawn at 912am, question whether this is fasting -Hgb A1c added on Thank you for allowing me to participate in this consult. Signing off at this time. Please do not hesitate to call for further questions. Plan 1. Gather collateral information. 2. Continue Zyprexa 5 mg p.o. b.i.d.. 3. Start Namenda 5 mg p.o. q.h.s.. Namenda was increased up to B.i.d. on October 01. On October 04 we increased Namenda up to 10 mg p.o. b.i.d.. We increased Aricept to 10 mg p.o. q.h.s. on the week of September. 4. Family meeting on October 04 at 13:00 for disposition. The family will visit local facilities for discharge planning. 5. Trazodone 12.5 mg p.o. t.i.d. to target anxiety. 6. Waiting for placement. Scheduled to be discharged on October 22 to an [facility] facility that the family has already arranged. Reason for continued inpatient stay Substantial Risk for: inability to function, rapid decompensation and med/psych decompensation Time Spent With Patient Time: Total time managing care of this patient today _20___ minutes.
[2022-10-16 18:00] VITALS: BP 146/64; PULSE 80; RESP 19; TEMP 36.1; O2SAT 95
[2022-10-16] MEDS: traZODone HCL 100 MG TABLET PO (20:39)
[2022-10-16] MEDS: Donepezil HCl 10 MG TABLET PO (20:39)
[2022-10-17 08:00] VITALS: BP 136/64; PULSE 69; RESP 18; TEMP 36.7; O2SAT 96
[2022-10-17] MEDS: traZODone HCL 25 MG HALFTAB 12.5 MG PO ×3 (08:47→20:45)
[2022-10-17] MEDS: Memantine HCl 10 MG TABLET PO ×2 (08:47→20:45)
[2022-10-17] MEDS: OLANZapine 5 MG TABLET PO ×2 (08:47→16:17)
--- NOTE | 2022-10-17 10:40 | P.PNPSI_ITS ---
Subjective Subjective Date of Service: 10/17/22 Reason For Visit: DSM 5 Diagnosis:/ F43.25) Adjustment disorders, wi Subjective Notes: Conditional Voluntary Interim History: The nursing staff reported the patient had been confused but easily redirectable, she stated that she is on a but occasional right now. The administrator social welfare has already arrange the acceptance of the patient at the [facility] for , waiting for placement. On interview the patient is pleasantly confused, easily redirectable no changes on mental status. Mental Status Exam Mental Status Exam Patient Appearance: Well Grooomed and Appropriate Patient Orientation: Person and Situation Level of Consciousness: Awake and Appropriate Patient Behavior: Guarded and Passive Mood Description: Withdrawn Affect Description: Constricted Patient Cognition Impaired: Yes Ability to Follow Directions: Good Speech Pattern: Clear and Difficulty Finding Words Hallucinations: None Delusions: Not Present Thought Process: Illogical and Distracted Thought Content: positive for [place] and positive for Circumstantial Judgement: Poor Diagnostics Vital Signs (24Hr): Vital Signs - 24 hr 10/16/22 18:00 10/17/22 08:00 Temperature 97 F 98.1 F Pulse Rate 80 69 Respiratory Rate 19 18 Blood Pressure 146/64 H 136/64 Pulse Oximetry 95 96 Oxygen Delivery Method Room Air Room Air BMI result Body Mass Index 20.8 Labs 09/22/22 09:12 Medications Medications Current Medications Acetaminophen (Acetaminophen 325 Mg Tablet) 650 mg PO Q6H PRN PRN Reason: Headache/Pain Mild Scale (1-3) Last Admin: 10/14/22 21:18 Dose: 650 mg Al Hydroxide/Mg Hydroxide (Magnesium Hydrox/Alum Hydrox 30 Ml Oral.Susp) 30 ml PO Q6H PRN PRN Reason: Heartburn/Nausea Donepezil HCl (Donepezil Hcl 10 Mg Tablet) 10 mg PO BEDTIME [facility] Last Admin: 10/16/22 20:39 Dose: 10 mg Magnesium Hydroxide (Milk Of Magnesia 30 Ml Oral.Susp) 30 ml PO DAILY PRN PRN Reason: Constipation Memantine (Memantine Hcl 10 Mg Tablet) 10 mg PO BID [facility] Last Admin: 10/17/22 08:47 Dose: 10 mg Olanzapine (Olanzapine Odt 10 Mg Tab.Rapdis) 5 mg TRANSLINGU BID PRN PRN Reason: Psychosis Last Admin: 10/15/22 14:04 Dose: 5 mg Olanzapine (Olanzapine 5 Mg Tablet) 5 mg PO BID@0800,1700 [facility] Last Admin: 10/17/22 08:47 Dose: 5 mg Trazodone HCl (Trazodone Hcl 100 Mg Tablet) 100 mg PO BEDTIME MRX1 PRN PRN Reason: Insomnia Last Admin: 10/08/22 01:17 Dose: 100 mg Trazodone HCl (Trazodone Hcl 25 Mg Halftab) 12.5 mg PO TID [facility] Last Admin: 10/17/22 08:47 Dose: 12.5 mg Trazodone HCl (Trazodone Hcl 100 Mg Tablet) 100 mg PO BEDTIME [facility] Last Admin: 10/16/22 20:39 Dose: 100 mg Allergies Allergies Allergy/AdvReac Type Severity Reaction Status Date / Time cinnamon AdvReac Unknown Headache Verified 09/21/22 15:00 tuna oil AdvReac Unknown Unknown Verified 09/21/22 15:02 Bello agosto tea AdvReac Headache Uncoded 09/21/22 15:02 Assessment & Plan Assessment & Plan (1) Alzheimer's dementia: Status: Acute Code(s): G30.9 - Alzheimer's disease, unspecified; F02.80 - Dementia in other diseases classified elsewhere, unspecified severity, without behavioral disturbance, psychotic disturbance, mood disturbance, and anxiety Assessment and Plan: Namenda just increased (2) Psychosis: Status: Acute Code(s): F29 - Unspecified psychosis not due to a substance or known physiological condition Assessment and Plan: Continue current doses of zyprexa and trazodone. 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 #Azheimer's dementia -plan per psychiatry #Osteoarthritis multiple joints -tylenol prn #History dvt -not on AC -no calf tenderness #Impaired fasting glucose -165, was drawn at 912am, question whether this is fasting -Hgb A1c added on Thank you for allowing me to participate in this consult. Signing off at this time. Please do not hesitate to call for further questions. Plan 1. Gather collateral information. 2. Continue Zyprexa 5 mg p.o. b.i.d.. 3. Start Namenda 5 mg p.o. q.h.s.. Namenda was increased up to B.i.d. on October 01. On October 04 we increased Namenda up to 10 mg p.o. b.i.d.. We increased Aricept to 10 mg p.o. q.h.s. on the week of September. 4. Family meeting on October 04 at 13:00 for disposition. The family will visit local facilities for discharge planning. 5. Trazodone 12.5 mg p.o. t.i.d. to target anxiety. 6. Waiting for placement. Scheduled to be discharged on October 22 to an halfway facility that the family has already arranged. Reason for continued inpatient stay Substantial Risk for: inability to function, rapid decompensation and med/psych decompensation Time Spent With Patient Time: Total time managing care of this patient today __20__ minutes.
[2022-10-17 19:50] VITALS: BP 148/70; PULSE 64; RESP 17; TEMP 36.4; O2SAT 96
[2022-10-17] MEDS: Donepezil HCl 10 MG TABLET PO (20:45)
[2022-10-17] MEDS: traZODone HCL 100 MG TABLET PO (20:45)
[2022-10-18 08:00] VITALS: BP 118/61; PULSE 76; RESP 16; TEMP 36.5; O2SAT 94
[2022-10-18] MEDS: OLANZapine 5 MG TABLET PO (08:42)
[2022-10-18] MEDS: Memantine HCl 10 MG TABLET PO ×2 (08:42→20:43)
[2022-10-18] MEDS: traZODone HCL 25 MG HALFTAB 12.5 MG PO ×2 (08:42→20:43)
--- NOTE | 2022-10-18 11:02 | HO.PSYCHPN ---
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 It was noticeable that she had had shown more exit seeking. She is unable to remember that she is going to be discharged on October 22. The medical social worker reported that it has been confirmed [facility] October [facility] Mental Status Exam Mental Status Exam Patient Appearance: Well Grooomed and Appropriate Patient Orientation: Person and Situation Level of Consciousness: Awake and Appropriate Patient Behavior: Guarded and Passive Mood Description: Withdrawn Affect Description: Constricted Patient Cognition Impaired: Yes Ability to Follow Directions: Good Speech Pattern: Clear Hallucinations: None Delusions: Not Present Thought Process: Distracted, Evasive and Slowed Thinking Thought Content: positive for [place] and positive for Poverty of Content Judgement: Poor Diagnostics Vital Signs (24Hr): Vital Signs - 24 hr 10/17/22 19:50 10/18/22 08:00 Temperature 97.5 F 97.7 F Pulse Rate 64 76 Respiratory Rate 17 16 Blood Pressure 148/70 H 118/61 Pulse Oximetry 96 94 Oxygen Delivery Method Room Air Room Air BMI result Body Mass Index 20.8 Labs 09/22/22 09:12 Medications Medications Current Medications Acetaminophen (Acetaminophen 325 Mg Tablet) 650 mg PO Q6H PRN PRN Reason: Headache/Pain Mild Scale (1-3) Last Admin: 10/14/22 21:18 Dose: 650 mg Al Hydroxide/Mg Hydroxide (Magnesium Hydrox/Alum Hydrox 30 Ml Oral.Susp) 30 ml PO Q6H PRN PRN Reason: Heartburn/Nausea Donepezil HCl (Donepezil Hcl 10 Mg Tablet) 10 mg PO BEDTIME [facility] Last Admin: 10/17/22 20:45 Dose: 10 mg Magnesium Hydroxide (Milk Of Magnesia 30 Ml Oral.Susp) 30 ml PO DAILY PRN PRN Reason: Constipation Memantine (Memantine Hcl 10 Mg Tablet) 10 mg PO BID [facility] Last Admin: 10/18/22 08:42 Dose: 10 mg Olanzapine (Olanzapine Odt 10 Mg Tab.Rapdis) 5 mg TRANSLINGU BID PRN PRN Reason: Psychosis Last Admin: 10/15/22 14:04 Dose: 5 mg Olanzapine (Olanzapine 5 Mg Tablet) 5 mg PO BID@0800,1700 [facility] Last Admin: 10/18/22 08:42 Dose: 5 mg Trazodone HCl (Trazodone Hcl 100 Mg Tablet) 100 mg PO BEDTIME MRX1 PRN PRN Reason: Insomnia Last Admin: 10/08/22 01:17 Dose: 100 mg Trazodone HCl (Trazodone Hcl 25 Mg Halftab) 12.5 mg PO TID [facility] Last Admin: 10/18/22 08:42 Dose: 12.5 mg Trazodone HCl (Trazodone Hcl 100 Mg Tablet) 100 mg PO BEDTIME [facility] Last Admin: 10/17/22 20:45 Dose: 100 mg Allergies Allergies Allergy/AdvReac Type Severity Reaction Status Date / Time cinnamon AdvReac Unknown Headache Verified 09/21/22 15:00 tuna oil AdvReac Unknown Unknown Verified 09/21/22 15:02 Bello agosot tea AdvReac Headache Uncoded 09/21/22 15:02 Assessment & Plan Assessment & Plan (1) Alzheimer's dementia: Status: Acute Code(s): G30.9 - Alzheimer's disease, unspecified; F02.80 - Dementia in other diseases classified elsewhere, unspecified severity, without behavioral disturbance, psychotic disturbance, mood disturbance, and anxiety Assessment and Plan: Namenda just increased (2) Psychosis: Status: Acute Code(s): F29 - Unspecified psychosis not due to a substance or known physiological condition Assessment and Plan: Continue current doses of zyprexa and trazodone. 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 #Azheimer's dementia -plan per psychiatry #Osteoarthritis multiple joints -tylenol prn #History dvt -not on AC -no calf tenderness #Impaired fasting glucose -165, was drawn at 912am, question whether this is fasting -Hgb A1c added on Thank you for allowing me to participate in this consult. Signing off at this time. Please do not hesitate to call for further questions. Plan 1. Gather collateral information. 2. Continue Zyprexa 5 mg p.o. b.i.d.. 3. Start Namenda 5 mg p.o. q.h.s.. Namenda was increased up to B.i.d. on October 01. On October 04 we increased Namenda up to 10 mg p.o. b.i.d.. We increased Aricept to 10 mg p.o. q.h.s. on the week of September. 4. Family meeting on October 04 at 13:00 for disposition. The family will visit local facilities for discharge planning. 5. Trazodone 12.5 mg p.o. t.i.d. to target anxiety. 6. Waiting for placement. Scheduled to be discharged on October 22 to an custodial facility that the family has already arranged. Reason for continued inpatient stay Substantial Risk for: inability to function, rapid decompensation and med/psych decompensation Time Spent With Patient Time: Total time managing care of this patient today __20__ minutes.
[2022-10-18 18:00] VITALS: BP 114/55; PULSE 74; RESP 16; TEMP 35.6; O2SAT 97
[2022-10-18] MEDS: Donepezil HCl 10 MG TABLET PO (20:39)
[2022-10-18] MEDS: traZODone HCL 100 MG TABLET PO (20:40)
[2022-10-18] MEDS: OLANZapine ODT 10 MG TAB.RAPDIS 5 MG TRANSLINGU (20:44)
[2022-10-19] MEDS: Memantine HCl 10 MG TABLET PO ×2 (08:59→21:12)
[2022-10-19] MEDS: OLANZapine 5 MG TABLET PO ×2 (09:00→16:40)
[2022-10-19] MEDS: traZODone HCL 25 MG HALFTAB 12.5 MG PO ×3 (09:00→21:12)
[2022-10-19 09:25] VITALS: BP 113/56; PULSE 76; RESP 18; TEMP 36.2; O2SAT 94
--- NOTE | 2022-10-19 11:05 | P.PNPSI_ITS ---
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 She looks calmer but very confused. On interview the patient denies new symptoms she was asking to going back home I explained her that she is going to be discharged SaturdayOctober 22. Very poor short-term memory. Mental Status Exam Mental Status Exam Patient Appearance: Well Grooomed and Appropriate Patient Orientation: Person and Situation Level of Consciousness: Awake and Appropriate Patient Behavior: Guarded and Passive Mood Description: Withdrawn Affect Description: Constricted Patient Cognition Impaired: Yes Ability to Follow Directions: Good Speech Pattern: Clear Hallucinations: None Delusions: Not Present Thought Process: Illogical, Distracted and Evasive Thought Content: positive for [place] and positive for Poverty of Content Judgement: Poor Diagnostics Vital Signs (24Hr): Vital Signs - 24 hr 10/18/22 18:00 10/19/22 09:25 Temperature 96.1 F L 97.2 F Pulse Rate 74 76 Respiratory Rate 16 18 Blood Pressure 114/55 L 113/56 L Pulse Oximetry 97 94 Oxygen Delivery Method Room Air Room Air BMI result Body Mass Index 20.8 Labs 09/22/22 09:12 Medications Medications Current Medications Acetaminophen (Acetaminophen 325 Mg Tablet) 650 mg PO Q6H PRN PRN Reason: Headache/Pain Mild Scale (1-3) Last Admin: 10/14/22 21:18 Dose: 650 mg Al Hydroxide/Mg Hydroxide (Magnesium Hydrox/Alum Hydrox 30 Ml Oral.Susp) 30 ml PO Q6H PRN PRN Reason: Heartburn/Nausea Donepezil HCl (Donepezil Hcl 10 Mg Tablet) 10 mg PO BEDTIME [facility] Last Admin: 10/18/22 20:39 Dose: 10 mg Magnesium Hydroxide (Milk Of Magnesia 30 Ml Oral.Susp) 30 ml PO DAILY PRN PRN Reason: Constipation Memantine (Memantine Hcl 10 Mg Tablet) 10 mg PO BID [facility] Last Admin: 10/19/22 08:59 Dose: 10 mg Olanzapine (Olanzapine Odt 10 Mg Tab.Rapdis) 5 mg TRANSLINGU BID PRN PRN Reason: Psychosis Last Admin: 10/18/22 20:44 Dose: 5 mg Olanzapine (Olanzapine 5 Mg Tablet) 5 mg PO BID@0800,1700 [facility] Last Admin: 10/19/22 09:00 Dose: 5 mg Trazodone HCl (Trazodone Hcl 100 Mg Tablet) 100 mg PO BEDTIME MRX1 PRN PRN Reason: Insomnia Last Admin: 10/08/22 01:17 Dose: 100 mg Trazodone HCl (Trazodone Hcl 25 Mg Halftab) 12.5 mg PO TID [facility] Last Admin: 10/19/22 09:00 Dose: 12.5 mg Trazodone HCl (Trazodone Hcl 100 Mg Tablet) 100 mg PO BEDTIME [facility] Last Admin: 10/18/22 20:40 Dose: 100 mg Allergies Allergies Allergy/AdvReac Type Severity Reaction Status Date / Time cinnamon AdvReac Unknown Headache Verified 09/21/22 15:00 tuna oil AdvReac Unknown Unknown Verified 09/21/22 15:02 Bello agosto tea AdvReac Headache Uncoded 09/21/22 15:02 Assessment & Plan Assessment & Plan (1) Alzheimer's dementia: Status: Acute Code(s): G30.9 - Alzheimer's disease, unspecified; F02.80 - Dementia in other diseases classified elsewhere, unspecified severity, without behavioral disturbance, psychotic disturbance, mood disturbance, and anxiety Assessment and Plan: Namenda just increased (2) Psychosis: Status: Acute Code(s): F29 - Unspecified psychosis not due to a substance or known physiological condition Assessment and Plan: Continue current doses of zyprexa and trazodone. 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 #Azheimer's dementia -plan per psychiatry #Osteoarthritis multiple joints -tylenol prn #History dvt -not on AC -no calf tenderness #Impaired fasting glucose -165, was drawn at 912am, question whether this is fasting -Hgb A1c added on Thank you for allowing me to participate in this consult. Signing off at this time. Please do not hesitate to call for further questions. Plan 1. Gather collateral information. 2. Continue Zyprexa 5 mg p.o. b.i.d.. 3. Start Namenda 5 mg p.o. q.h.s.. Namenda was increased up to B.i.d. on October 01. On October 04 we increased Namenda up to 10 mg p.o. b.i.d.. We increased Aricept to 10 mg p.o. q.h.s. on the week of September. 4. Family meeting on October 04 at 13:00 for disposition. The family will visit local facilities for discharge planning. 5. Trazodone 12.5 mg p.o. t.i.d. to target anxiety. 6. Waiting for placement. Scheduled to be discharged on October 22 to an senior living facility that the family has already arranged. Reason for continued inpatient stay Substantial Risk for: inability to function, rapid decompensation and med/psych decompensation Time Spent With Patient Time: Total time managing care of this patient today __20__ minutes.
[2022-10-19 18:00] VITALS: BP 125/69; PULSE 87; RESP 18; TEMP 36.2; O2SAT 95
[2022-10-19] MEDS: traZODone HCL 100 MG TABLET PO (21:11)
[2022-10-19] MEDS: Donepezil HCl 10 MG TABLET PO (21:12)
--- NOTE | 2022-10-20 07:54 | HO.PSYCHPN ---
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 Her several years ago. On interview the patient denies new symptoms, pleasantly confused, she is going to be discharged Saturday to an detention facility. Mental Status Exam Mental Status Exam Patient Appearance: Well Grooomed and Appropriate Patient Orientation: Person Level of Consciousness: Awake Patient Behavior: Guarded and Passive Mood Description: Withdrawn Affect Description: Constricted Patient Cognition Impaired: Yes Ability to Follow Directions: Good Speech Pattern: Clear Hallucinations: None Delusions: Not Present Thought Process: Distracted and Slowed Thinking Thought Content: positive for [place], positive for Poverty of Content and positive for Thought Blocking Judgement: Fair Diagnostics Vital Signs (24Hr): Vital Signs - 24 hr 10/19/22 09:25 10/19/22 18:00 Temperature 97.2 F 97.2 F Pulse Rate 76 87 Respiratory Rate 18 18 Blood Pressure 113/56 L 125/69 Pulse Oximetry 94 95 Oxygen Delivery Method Room Air Room Air BMI result Body Mass Index 20.8 Labs 09/22/22 09:12 Medications Medications Current Medications Acetaminophen (Acetaminophen 325 Mg Tablet) 650 mg PO Q6H PRN PRN Reason: Headache/Pain Mild Scale (1-3) Last Admin: 10/14/22 21:18 Dose: 650 mg Al Hydroxide/Mg Hydroxide (Magnesium Hydrox/Alum Hydrox 30 Ml Oral.Susp) 30 ml PO Q6H PRN PRN Reason: Heartburn/Nausea Donepezil HCl (Donepezil Hcl 10 Mg Tablet) 10 mg PO BEDTIME [facility] Last Admin: 10/19/22 21:12 Dose: 10 mg Magnesium Hydroxide (Milk Of Magnesia 30 Ml Oral.Susp) 30 ml PO DAILY PRN PRN Reason: Constipation Memantine (Memantine Hcl 10 Mg Tablet) 10 mg PO BID [facility] Last Admin: 10/19/22 21:12 Dose: 10 mg Olanzapine (Olanzapine Odt 10 Mg Tab.Rapdis) 5 mg TRANSLINGU BID PRN PRN Reason: Psychosis Last Admin: 10/18/22 20:44 Dose: 5 mg Olanzapine (Olanzapine 5 Mg Tablet) 5 mg PO BID@0800,1700 [facility] Last Admin: 10/19/22 16:40 Dose: 5 mg Trazodone HCl (Trazodone Hcl 100 Mg Tablet) 100 mg PO BEDTIME MRX1 PRN PRN Reason: Insomnia Last Admin: 10/08/22 01:17 Dose: 100 mg Trazodone HCl (Trazodone Hcl 25 Mg Halftab) 12.5 mg PO TID [facility] Last Admin: 10/19/22 21:12 Dose: 12.5 mg Trazodone HCl (Trazodone Hcl 100 Mg Tablet) 100 mg PO BEDTIME [facility] Last Admin: 10/19/22 21:11 Dose: 100 mg Allergies Allergies Allergy/AdvReac Type Severity Reaction Status Date / Time cinnamon AdvReac Unknown Headache Verified 09/21/22 15:00 tuna oil AdvReac Unknown Unknown Verified 09/21/22 15:02 Bello agosto tea AdvReac Headache Uncoded 09/21/22 15:02 Assessment & Plan Assessment & Plan (1) Alzheimer's dementia: Status: Acute Code(s): G30.9 - Alzheimer's disease, unspecified; F02.80 - Dementia in other diseases classified elsewhere, unspecified severity, without behavioral disturbance, psychotic disturbance, mood disturbance, and anxiety Assessment and Plan: Namenda just increased (2) Psychosis: Status: Acute Code(s): F29 - Unspecified psychosis not due to a substance or known physiological condition Assessment and Plan: Continue current doses of zyprexa and trazodone. 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 #Azheimer's dementia -plan per psychiatry #Osteoarthritis multiple joints -tylenol prn #History dvt -not on AC -no calf tenderness #Impaired fasting glucose -165, was drawn at 912am, question whether this is fasting -Hgb A1c added on Thank you for allowing me to participate in this consult. Signing off at this time. Please do not hesitate to call for further questions. Plan 1. Gather collateral information. 2. Continue Zyprexa 5 mg p.o. b.i.d.. 3. Start Namenda 5 mg p.o. q.h.s.. Namenda was increased up to B.i.d. on October 01. On October 04 we increased Namenda up to 10 mg p.o. b.i.d.. We increased Aricept to 10 mg p.o. q.h.s. on the week of September. 4. Family meeting on October 04 at 13:00 for disposition. The family will visit local facilities for discharge planning. 5. Trazodone 12.5 mg p.o. t.i.d. to target anxiety. 6. Waiting for placement. Scheduled to be discharged on October 22 to an detention facility that the family has already arranged. Reason for continued inpatient stay Substantial Risk for: inability to function, rapid decompensation and med/psych decompensation Time Spent With Patient Time: Total time managing care of this patient today __20__ minutes.
[2022-10-20 08:00] VITALS: BP 120/58; PULSE 73; RESP 18; TEMP 36.3; O2SAT 94
[2022-10-20] MEDS: OLANZapine 5 MG TABLET PO ×2 (08:59→16:03)
[2022-10-20] MEDS: traZODone HCL 25 MG HALFTAB 12.5 MG PO ×3 (08:59→21:04)
[2022-10-20] MEDS: Memantine HCl 10 MG TABLET PO ×2 (08:59→21:04)
[2022-10-20 18:00] VITALS: BP 129/94; PULSE 77; RESP 18; TEMP 36.1; O2SAT 95
[2022-10-20] MEDS: Donepezil HCl 10 MG TABLET PO (21:05)
[2022-10-20] MEDS: traZODone HCL 100 MG TABLET PO (21:05)
[2022-10-21 08:00] VITALS: BP 122/67; PULSE 71; RESP 18; TEMP 36.1; O2SAT 95
--- NOTE | 2022-10-21 08:20 | HO.PSYCHPN ---
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 On interview the patient cannot remember that she is going to be discharged tomorrow. Waiting for placement. Mental Status Exam Mental Status Exam Patient Appearance: Well Grooomed and Appropriate Patient Orientation: Person and Situation Level of Consciousness: Awake and Appropriate Patient Behavior: Guarded and Passive Mood Description: Withdrawn Affect Description: Constricted Patient Cognition Impaired: Yes Ability to Follow Directions: Good Speech Pattern: Clear Hallucinations: None Delusions: Not Present Thought Process: Illogical and Distracted Thought Content: positive for [place], positive for [place] and positive for Poverty of Content Judgement: Fair Diagnostics Vital Signs (24Hr): Vital Signs - 24 hr 10/20/22 18:00 Temperature 97 F Pulse Rate 77 Respiratory Rate 18 Blood Pressure 129/94 H Pulse Oximetry 95 Oxygen Delivery Method Room Air BMI result Body Mass Index 20.8 Labs 09/22/22 09:12 Medications Medications Current Medications Acetaminophen (Acetaminophen 325 Mg Tablet) 650 mg PO Q6H PRN PRN Reason: Headache/Pain Mild Scale (1-3) Last Admin: 10/14/22 21:18 Dose: 650 mg Al Hydroxide/Mg Hydroxide (Magnesium Hydrox/Alum Hydrox 30 Ml Oral.Susp) 30 ml PO Q6H PRN PRN Reason: Heartburn/Nausea Donepezil HCl (Donepezil Hcl 10 Mg Tablet) 10 mg PO BEDTIME [facility] Last Admin: 10/20/22 21:05 Dose: 10 mg Magnesium Hydroxide (Milk Of Magnesia 30 Ml Oral.Susp) 30 ml PO DAILY PRN PRN Reason: Constipation Memantine (Memantine Hcl 10 Mg Tablet) 10 mg PO BID [facility] Last Admin: 10/20/22 21:04 Dose: 10 mg Olanzapine (Olanzapine Odt 10 Mg Tab.Rapdis) 5 mg TRANSLINGU BID PRN PRN Reason: Psychosis Last Admin: 10/18/22 20:44 Dose: 5 mg Olanzapine (Olanzapine 5 Mg Tablet) 5 mg PO BID@0800,1700 [facility] Last Admin: 10/20/22 16:03 Dose: 5 mg Trazodone HCl (Trazodone Hcl 100 Mg Tablet) 100 mg PO BEDTIME MRX1 PRN PRN Reason: Insomnia Last Admin: 10/08/22 01:17 Dose: 100 mg Trazodone HCl (Trazodone Hcl 25 Mg Halftab) 12.5 mg PO TID [facility] Last Admin: 10/20/22 21:04 Dose: 12.5 mg Trazodone HCl (Trazodone Hcl 100 Mg Tablet) 100 mg PO BEDTIME [facility] Last Admin: 10/20/22 21:05 Dose: 100 mg Allergies Allergies Allergy/AdvReac Type Severity Reaction Status Date / Time cinnamon AdvReac Unknown Headache Verified 09/21/22 15:00 tuna oil AdvReac Unknown Unknown Verified 09/21/22 15:02 Bello agosto tea AdvReac Headache Uncoded 09/21/22 15:02 Assessment & Plan Assessment & Plan (1) Alzheimer's dementia: Status: Acute Code(s): G30.9 - Alzheimer's disease, unspecified; F02.80 - Dementia in other diseases classified elsewhere, unspecified severity, without behavioral disturbance, psychotic disturbance, mood disturbance, and anxiety Assessment and Plan: Namenda just increased (2) Psychosis: Status: Acute Code(s): F29 - Unspecified psychosis not due to a substance or known physiological condition Assessment and Plan: Continue current doses of zyprexa and trazodone. 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 #Azheimer's dementia -plan per psychiatry #Osteoarthritis multiple joints -tylenol prn #History dvt -not on AC -no calf tenderness #Impaired fasting glucose -165, was drawn at 912am, question whether this is fasting -Hgb A1c added on Thank you for allowing me to participate in this consult. Signing off at this time. Please do not hesitate to call for further questions. Plan 1. Gather collateral information. 2. Continue Zyprexa 5 mg p.o. b.i.d.. 3. Start Namenda 5 mg p.o. q.h.s.. Namenda was increased up to B.i.d. on October 01. On October 04 we increased Namenda up to 10 mg p.o. b.i.d.. We increased Aricept to 10 mg p.o. q.h.s. on the of September. 4. Family meeting on October 04 at 13:00 for disposition. The family will visit local facilities for discharge planning. 5. Trazodone 12.5 mg p.o. t.i.d. to target anxiety. 6. Waiting for placement. Scheduled to be discharged on October 22 to an detention facility that the family has already arranged. Reason for continued inpatient stay Substantial Risk for: inability to function, rapid decompensation and med/psych decompensation Time Spent With Patient Time: Total time managing care of this patient today _20___ minutes.
--- NOTE | 2022-10-21 08:21 | PM.PSYDC ---
DS: Providers Provider Date of Service: 10/21/22 Date of admission: 09/21/22 13:55 Date of discharge: 10/22/22 Primary care physician: Unknown Physician Consults: 09/21/22 14:00 Consult to Hospitalist Routine Comment: Consulting Provider: Hospitalist Reason For Exam: Direct admission from [facility] Attending physician on discharge: Joel Fernandezrano DS: Diagnosis Discharge Diagnosis (1) Alzheimer's dementia: Status: Acute (2) Psychosis: Status: Acute DS: Medications Discharge Medications Home Medications: Previous Rx's Medication Instructions Recorded donepezil 10 mg tablet 10 mg PO BEDTIME 30 days #30 tabs 10/16/22 memantine 10 mg tablet (Namenda) 10 mg PO BID 30 days #60 tabs 10/16/22 olanzapine 5 mg tablet 5 mg PO BID@0800,1700 30 days #60 10/16/22 tabs trazodone 100 mg tablet 100 mg PO BEDTIME 30 days #30 tabs 10/16/22 Mental Status Exam Mental Status Exam Patient Appearance: Well Grooomed and Appropriate Patient Orientation: Person, Place and Situation Level of Consciousness: Awake and Appropriate Patient Behavior: Guarded and Passive Mood Description: Withdrawn Affect Description: Constricted and Relaxed Patient Cognition Impaired: Yes Ability to Follow Directions: Good Speech Pattern: Clear and Difficulty Finding Words Hallucinations: None Delusions: Not Present Thought Process: Distracted and Slowed Thinking Thought Content: positive for [place], positive for Poverty of Content and positive for Thought Blocking Judgement: Poor DS: Summary Hospital Course Hospital Course: The patient is an 87-year-old female, , mother of adult children, who was brought to the emergency room from her home that resides with caregivers since she was agitated, disorganized and irritable. She was initially admitted at the medical floor of another hospital, started on Zyprexa 5 mg p.o. b.i.d. and transferring to this facility for continuation of care. Please see the HPI of the admission note for further details. The patient at baseline used to be highly functional but apparently in the last years she had been more forgetful, slightly disorganized with evidence symptoms of dementia. We gather collateral information and her son reported that she had been declining slowly in the last years. The patient's primary language is [place] but she can speak [place] fluently but in the last weeks we have noticed that the patient had been losing her verbal skills in [place] resorting more to [place]. We did a neuro cognitive testing it was clear that the patient suffers from dementia. We started Aricept titrated up to 10 mg p.o. q.h.s. and added later on, Namenda titrated up to 10 mg p.o. b.i.d. with no side effects.. We had several family meetings and the family arrange the transfer to [facility] facilities since the patient cannot live independently at home. The patient had been pleasantly confused, easily redirectable. Since there were no safety concerns discharge planning was discussed Time spent discussing smoking cessation with patient: 3 to 10 minutes Status at Discharge Cognitive/behavioral status at discharge: Impaired at baseline Functional status at discharge: independent ambulation Overall status at discharge: patient is back to baseline Time Spent with Patient Time attestation: Total time managing care of this patient today __30__ minutes. Time spent: Less than 30 minutes Discharge Plan Discharge Anticipated Discharge Date/Time: 10/22/22 11:00 Patient Disposition: Xfer SNF Discharge Diagnosis: Dementia Delirium resolved Referrals: [facility] [Other] - 10/22/22 11:00 am (Transfer to [facility]. Heidi Do DIRECTOR OF QUALITY will provide psychiatry services at [facility], and Dr Zakia Cruz will be providing primary care.) Discharge Medications: New donepezil 10 mg Tablet 10 mg PO BEDTIME 30 Days Qty: 30 0RF olanzapine 5 mg Tablet 5 mg PO BID@0800,1700 30 Days Qty: 60 0RF trazodone 100 mg Tablet 100 mg PO BEDTIME 30 Days Qty: 30 0RF memantine [Namenda] 10 mg Tablet 10 mg PO BID 30 Days Qty: 60 0RF trazodone 50 mg tablet 12.5 mg PO TID Qty: 30 0RF Discharge Orders: Discharge Order (Routine); Ordered 10/22/22 Ordered By: Joel Greenwood Diet: Advance to usual diet Activity on Discharge: As tolerated Stand Alone Forms: Patient Portal Discharge page Care Plan Goals: Care plan goals achieved in this admission Health Concerns: Continue treatment with primary care physician Plan of Treatment: Continue treatment as an outpatient for mental health Assessment: Elderly female with a prior history of dementia and that was admitted into the hospital after being initially confused and irritable, medically treated and transfer to this facility for psychiatric stabilization. The patient's cognition have worsened in the last years and we started Aricept and added Namenda with good tolerability. At this moment ready to be discharged in the community.
[2022-10-21] MEDS: Memantine HCl 10 MG TABLET PO ×2 (08:34→22:34)
[2022-10-21] MEDS: traZODone HCL 25 MG HALFTAB 12.5 MG PO ×3 (08:34→22:38)
[2022-10-21] MEDS: OLANZapine 5 MG TABLET PO ×2 (08:34→17:18)
[2022-10-21 18:00] VITALS: BP 140/65; PULSE 67; RESP 18
[2022-10-21] MEDS: Donepezil HCl 10 MG TABLET PO (22:34)
[2022-10-21] MEDS: traZODone HCL 100 MG TABLET PO (22:36)
[2022-10-22] MEDS: OLANZapine ODT 10 MG TAB.RAPDIS 5 MG TRANSLINGU (02:53)
[2022-10-22] MEDS: traZODone HCL 100 MG TABLET PO (02:53)
[2022-10-22 08:10] VITALS: BP 151/70; PULSE 76; RESP 18; TEMP 36.4; O2SAT 96
[2022-10-22] MEDS: traZODone HCL 25 MG HALFTAB 12.5 MG PO (08:30)
[2022-10-22] MEDS: Memantine HCl 10 MG TABLET PO (08:30)
[2022-10-22] MEDS: OLANZapine 5 MG TABLET PO (08:31)
== END 2022-10-22 11:59 | disposition skilled nursing facility (03) | DRG 885 ==
PROVIDERS: Admitting Provider Psychiatry & Neurology Psychiatry; Visit Provider Psychiatry & Neurology Psychiatry
DX: F29 Unspecified psychosis not due to a substance or known physiological condition (principal); F05 Delirium due to known physiological condition; M15.9 Polyosteoarthritis, unspecified; R73.01 Impaired fasting glucose; G30.9 Alzheimer's disease, unspecified; F02.80 Dementia in other diseases classified elsewhere, unspecified severity, without behavioral disturbance, psychotic disturbance, mood disturbance, and anxiety; Z86.718 Personal history of other venous thrombosis and embolism; Z87.891 Personal history of nicotine dependence; Z79.899 Other long term (current) drug therapy
CPT/HCPCS: 36415; 80053; 80061

== ENCOUNTER → 2022-09-21 13:55 | Outpatient (BNV) | payer MEDICARE, OTHER, SELFPAY | PROVIDERS: Admitting Provider Psychiatry & Neurology Psychiatry; Visit Provider Psychiatry & Neurology Psychiatry | DX: G30.9 Alzheimer's disease, unspecified (principal); F02.80 Dementia in other diseases classified elsewhere, unspecified severity, without behavioral disturbance, psychotic disturbance, mood disturbance, and anxiety; F29 Unspecified psychosis not due to a substance or known physiological condition | CPT/HCPCS: 90792; 99231; 99232; 99238 ==